=== PATIENT | female | born 1935 | race Caucasian/White ===

== ENCOUNTER 2016-12-06 10:06 | Emergency (ER) | payer MEDICARE ==
--- NOTE | 2016-12-06 10:20 | ER Document Report ---
ED Medical Screen (RME) - General Stated Complaint: CHEST PAIN Notes: chest pain with sudden onset last evening watching tv. right anterior chest pain with radiation into her right arm with associated SOB. patient states that her pain is less then before, took APA this AM stress test over a year ago denies coronary cath has IVC, h/o DVT and PE I have greeted and performed a rapid initial assessment of this patient. A comprehensive ED assessment and evaluation of the patient, analysis of test results and completion of the medical decision making process will be conducted by additional ED providers. TRAVEL OUTSIDE OF THE [place] IN LAST 30 DAYS: No - Related Data Allergies/Adverse Reactions: No Known Allergies Allergy (Verified 12/06/16 10:12) Past Medical History - Past Medical History Cardiac Medical History: Reports: Hx DVT, Hx Hypercholesterolemia, Hx Hypertension, Hx Pulmonary Embolism Denies: Hx Heart Attack, Hx Heart Murmur Pulmonary Medical History: Denies: Hx Asthma, Hx Tuberculosis Neurological Medical History: Denies: Hx Cerebrovascular Accident, Hx Seizures GI Medical History: Reports: Hx Gastroesophageal Reflux Disease. Denies: Hx Hepatitis, Hx Hiatal Hernia, Hx Ulcer Musculoskeltal Medical History: Psychiatric Medical History: Reports: Hx Depression Infectious Medical History: Denies: Hx Hepatitis Past Surgical History: Reports: Hx Hysterectomy, Hx Vascular Surgery - IVC filter. Denies: Hx Mastectomy, Hx Open Heart Surgery, Hx Pacemaker - Immunizations Hx Diphtheria, Pertussis, Tetanus Vaccination: Yes
[2016-12-06] MEDS ORDERED: ASPIRIN 81 MG TABLET, CHEWABLE PO ONE (10:25)
--- NOTE | 2016-12-06 10:59 | ER Document Report ---
ED General - General Chief Complaint: Chest Pain > 30 Stated Complaint: CHEST PAIN Time seen by provider: 10:54 Mode of Arrival: Ambulatory Information source: Patient, Relative Notes: 81-year-old female who is been complaining to caregiver and daughter of vague right parasternal chest pain radiating into the right shoulder and right upper back beginning last night. Family reports patient has some memory problems and the patient has given varying histories about how much pain she's been having since last night. At the moment she is stating that the pain is not present at rest but she feels some discomfort in the right scapular region with movement of the shoulder or deep breathing. Family contacted patient's primary care physician Dr. Baptiste and because of the report from the patient of feeling some shortness of breath she was referred to the emergency department. The patient denies diaphoresis nausea or vomiting. Family reports her mental status does not seem different than her baseline. He reports she's had 3 falls going up 1 step at home within the past 3 weeks. Reports she's not had a loss of consciousness with any of the falls and they did not identify any injury after any of the falls. They report she had a stress test that looked okay many years ago but no [place] catheterization or other cardiac history. Reports she does have an IVC filter placed in 1989 for pulmonary embolism. She was on Coumadin for many years but was stopped about 3 years ago for reasons the family does not recall. Reports she does not seem to have any pain numbness weakness or swelling to any extremity. Physical Exam: General: Alert, appears well. HEENT: Normocephalic. Atraumatic. PERRLA. Extraocular movements intact. Oropharynx clear. Extremities membranes moist Neck: Supple. Non-tender. Range of motion without discomfort no bony deformities palpated Respiratory: No respiratory distress. Clear and equal breath sounds bilaterally. Mildly tender to palpation in the right parasternal region no lesions are noted no crepitance present Cardiovascular: Regular rate and rhythm. PMI not displaced Abdominal: Normal Inspection. Soft, non-tender. No distension. Normal Bowel Sounds. No Guarding rebound rigidity. No Valentin sign Back: Minimal discomfort to palpation along the right upper scapula. No bony deformity or ecchymosis is present back is otherwise nontender to palpation No deformity or step off. Extremities: Moves all four extremities. Upper extremities: Normal inspection. Non-tender. Normal color. Normal ROM. Normal temperature. Range of motion testing the right upper extremity produces no discomfort. She does have mild tenderness palpation along the trapezius on the right Lower extremities: Normal inspection. Non-tender. No edema. Normal color. Normal ROM. Normal temperature. Neurological: Speech clear. Dope Pourer strength 5 out of 5 equal both upper extremities motor function 5 out of 5 equal both lower extremities. Patient is oriented to person and place and seems confused with answering detailed questions Psychological: Normal affect. Normal Mood. Skin: Warm. Dry. Normal color. TRAVEL OUTSIDE OF THE [place] IN LAST 30 DAYS: No - Related Data Allergies/Adverse Reactions: No Known Allergies Allergy (Verified 12/06/16 10:12) Past Medical History - Social History Smoking Status: Never Smoker Family History: DM Patient has suicidal ideation: No Patient has homicidal ideation: No - Past Medical History Cardiac Medical History: Reports: Hx DVT, Hx Hypercholesterolemia, Hx Hypertension, Hx Pulmonary Embolism Denies: Hx Heart Attack, Hx Heart Murmur Pulmonary Medical History: Denies: Hx Asthma, Hx Tuberculosis Neurological Medical History: Denies: Hx Cerebrovascular Accident, Hx Seizures Renal/ Medical History: Denies: Hx Peritoneal Dialysis GI Medical History: Reports: Hx Gastroesophageal Reflux Disease. Denies: Hx Hepatitis, Hx Hiatal Hernia, Hx Ulcer Musculoskeltal Medical History: Psychiatric Medical History: Reports: Hx Depression Infectious Medical History: Denies: Hx Hepatitis Past Surgical History: Reports: Hx Hysterectomy, Hx Vascular Surgery - IVC filter. Denies: Hx Mastectomy, Hx Open Heart Surgery, Hx Pacemaker - Immunizations Hx Diphtheria, Pertussis, Tetanus Vaccination: Yes Hx Pneumococcal Vaccination: 10/27/07 Review of Systems - Review of Systems Constitutional: denies: Chills, Fever EENT: denies: Ear pain, Throat pain Cardiovascular: See HPI. denies: Syncope Respiratory: Short of breath. denies: Cough Gastrointestinal: denies: Abdominal pain, Diarrhea, Nausea, Vomiting Genitourinary: denies: Burning, Dysuria Female Genitourinary: denies: Musculoskeletal: See HPI Hematologic/Lymphatic: denies: Swollen glands Neurological/Psychological: denies: Weakness, Numbness Course - Re-evaluation Re-evalutation: 12/06/16 12:15 Patient's exam is most consistent with musculoskeletal pain localizing to the right shoulder and right trapezius region and she has had multiple recent falls that might explain. Her bilirubin is minimally elevated but she has no right upper quadrant pain on deep palpation to suggest gallbladder disease. I discussed this with the patient's daughter and they're comfortable with stopping workup at this point. I discussed further to do definitive etiology for her symptoms has not been found but given her benign exam now I think more aggressive workup may be counterproductive. Rest and to follow her physician Dr. Baptiste next week for recheck and they're in agreement - Laboratory Result Diagrams: 12/06/16 10:52 12/06/16 10:52 Laboratory results interpreted by me: 12/06/16 12/06/16 10:52 10:52 Total Bilirubin 1.8 H Alkaline Phosphatase 133 H NT-Pro-B Natriuret Pep 780 H - Diagnostic Test Radiology reviewed: Image reviewed, Reports reviewed - EKG Interpretation by Me Additional EKG results interpreted by me: 12/06/16 12:15 EKG reviewed by myself shows sinus rhythm at 53 no acute changes sitting unchanged from prior EKG Discharge - Discharge Clinical Impression: Chest pain Qualifiers: Chest pain type: unspecified Qualified Code(s): R07.9 - Chest pain, unspecified Right shoulder pain Qualifiers: Chronicity: acute Qualified Code(s): M25.511 - Pain in right shoulder Condition: Stable Disposition: HOME, SELF-CARE Additional Instructions: Chest Wall Pain Your chest pain has been diagnosed as coming from the chest wall. This is often caused by straining the muscles or joints in the chest during physical activity, direct trauma, coughing, or vigorous vomiting. Persons with arthritis are especially prone to this type of pain, due to inflammation of the cartilage joints near the breast bone. Occasionally, no cause can be found. Rest from strenuous physical activity. This kind of chest pain is usually made worse by movement of the chest. Depending on the symptoms, we may prescribe medicine for pain, muscle relaxation, and antiinflammatory effects. If the pain is new, and seems to be due to muscle strain, cold packs can help. Otherwise, apply gentle warmth to the painful area for 15 minutes every hour or two. You should contact the doctor immediately if things change. Further evaluation is needed if you develop a fever or cough, if the nature of the pain changes, or if you become short of breath. Referrals: BRITTANI BAPTISTE, [NO LOCAL MD] - Follow up in 1 week
[2016-12-06 11:02] LABS: ABSOLUTE BASOPHILS # (AUTO) 0.1 10^3/uL (0.0-0.2); ABSOLUTE EOSINOPHILS # (AUTO) 0.3 10^3/uL (0.0-0.6); ABSOLUTE LYMPHOCYTES (AUTO) 1.3 10^3/uL (0.5-4.7); ABSOLUTE MONOCYTES (AUTO) 0.5 10^3/uL (0.1-1.4); ABSOLUTE NEUT (AUTO) 4.1 10^3/uL (1.7-8.2); BASOPHILS % (AUTO) 1.2 % (0-2); HEMATOCRIT 39.3 % (36.0-47.0); HEMOGLOBIN 13.1 g/dL (12.0-15.5); LYMPHOCYTES % (AUTO) 20.8 % (13-45); MEAN CORPUSCULAR HEMOGLOBIN 30.2 pg (27.0-33.4); MEAN CORPUSCULAR HGB CONC 33.4 g/dL (32.0-36.0); MEAN CORPUSCULAR VOLUME 90 fl (80-97); MONOCYTES % (AUTO) 8.1 % (3-13); RED BLOOD COUNT 4.34 10^6/uL (3.72-5.28); RED CELL DISTRIBUTION WIDTH 13.4 % (11.5-14.0); SEGMENTED NEUTROPHILS % (AUTO) 65.9 % (42-78); WHITE BLOOD COUNT 6.3 10^3/uL (4.0-10.5)
[2016-12-06 11:11] LABS: PROTHROMBIN TIME 12.7 SEC (11.4-15.4)
[2016-12-06 11:12] LABS: PARTIAL THROMBOPLASTIN TIME 27.3 SEC (23.5-35.8)
[2016-12-06 11:15] LABS: ALANINE AMINOTRANSFERASE 22 U/L (9-52); ALBUMIN 3.8 g/dL (3.5-5.0); ALKALINE PHOSPHATASE 133 U/L (38-126); ANION GAP 9 (5-19); ASPARTATE AMINO TRANSFERASE 32 U/L (14-36); BILIRUBIN,TOTAL 1.8 mg/dL (0.2-1.3); BLOOD UREA NITROGEN 12 mg/dL (7-20); CALCIUM 9.1 mg/dL (8.4-10.2); CARBON DIOXIDE 28 mmol/L (22-30); CHLORIDE 105 mmol/L (98-107); CREATINE KINASE 74 U/L (30-135); GLUCOSE 83 mg/dL (75-110); LIPASE 149.5 U/L (23-300); MAGNESIUM 1.8 mg/dL (1.6-2.3); SODIUM 141.9 mmol/L (137-145); TOTAL PROTEIN 7.6 g/dL (6.3-8.2)
[2016-12-06 11:28] LABS: CREATINE KINASE MB 0.65 ng/mL (<4.55); TROPONIN I < 0.012 ng/mL
[2016-12-06 12:36] VITALS: BP 178/78
--- NOTE | 2016-12-06 13:13 | EKG REPORT ---
SEVERITY:- ABNORMAL ECG - SINUS RHYTHM NONSPECIFIC ANTEROSEPTAL ST-T CHANGES : Confirmed by: Skyler Dexter MD 06-Dec-2016 13:12:29
== END 2016-12-06 12:41 | disposition home or self-care (01) ==
LOC: ER 10:06
DX: R07.9 Chest pain, unspecified (principal); M25.511 Pain in right shoulder; R41.3 Other amnesia; R06.02 Shortness of breath; I10 Essential (primary) hypertension; Z91.81 History of falling; Z86.711 Personal history of pulmonary embolism; Z86.718 Personal history of other venous thrombosis and embolism
CPT/HCPCS: 93005; 99285; 36415; 82553; 82550; 83690; 83735; 85025; 85610; 85730; 80053; 84484; 83880; 71010; 93010; A9270

== ENCOUNTER 2018-01-03 15:36 | Inpatient (IN) | payer MEDICARE ==
--- NOTE | 2018-01-03 16:37 | ER Document Report ---
ED General - General Chief Complaint: Syncope Stated Complaint: POSSIBLE SYNCOPE Time Seen by Provider: 01/03/18 15:59 Notes: This is a pleasant 82-year-old lady with Alzheimer's who lives at home with home care who comes in with syncope 2. She was being walked by her program director air talent out to the mailbox loss consciousness and postural tone and was helped to the ground. She woke up with no confusion or seizure-like activity. She was examined by EMS and family elected not to bring her in. About half an hour later she again got very dizzy turned pale and lost consciousness but did not have trauma. When she woke up from this episode she vomited. Patient is quite demented and is having trouble getting a history but she nods yes when asked if she has had chest pain. TRAVEL OUTSIDE OF THE [place] IN LAST 30 DAYS: No - Related Data Allergies/Adverse Reactions: No Known Allergies Allergy (Verified 12/06/16 10:12) Past Medical History - Social History Smoking Status: Never Smoker Chew tobacco use (# tins/day): No Frequency of alcohol use: None Drug Abuse: None Family History: DM Patient has suicidal ideation: No Patient has homicidal ideation: No - Past Medical History Cardiac Medical History: Reports: Hx DVT, Hx Hypercholesterolemia, Hx Hypertension, Hx Pulmonary Embolism Denies: Hx Heart Attack, Hx Heart Murmur Pulmonary Medical History: Denies: Hx Asthma, Hx Tuberculosis Neurological Medical History: Denies: Hx Cerebrovascular Accident, Hx Seizures Renal/ Medical History: Denies: Hx Peritoneal Dialysis GI Medical History: Reports: Hx Gastroesophageal Reflux Disease. Denies: Hx Hepatitis, Hx Hiatal Hernia, Hx Ulcer Musculoskeltal Medical History: Psychiatric Medical History: Reports: Hx Depression Infectious Medical History: Denies: Hx Hepatitis Past Surgical History: Reports: Hx Hysterectomy, Hx Vascular Surgery - IVC filter. Denies: Hx Mastectomy, Hx Open Heart Surgery, Hx Pacemaker - Immunizations Hx Diphtheria, Pertussis, Tetanus Vaccination: Yes Hx Pneumococcal Vaccination: 10/27/07 Review of Systems - Review of Systems Notes: Not able to obtain secondary to dementia PHYSICAL EXAMINATION General: No acute distress, well-nourished Head: Atraumatic, normocephalic ENT: Mouth normal, oropharynx moist, no exudates or tonsillar enlargement Eyes: Conjunctiva normal, pupils equal, lids normal Neck: No JVD, supple, no guarding CVS: Normal rate, regular rhythm, no murmurs Resp: No resp distress, equal and normal breath sounds bilaterally GI: Nondistended, soft, no tenderness to palpation, no rebound or guarding Ext: No deformities, no edema, normal range of motion in upper and lower ext Back: No CVA or midline TTP Skin: No rash, warm Lymphatic: No lymphadeopathy noted Neuro: Awake, alert. Face symmetric. G GCS 15 although memory is impaired. -: Yes ROS unobtainable due to patient's medical condition Physical Exam - Vital signs Vitals: Resp 19 01/03/18 15:44 Course - Re-evaluation Re-evalutation: This is an 82-year-old woman with no prior cardiac history presenting with 2 episodes of unprovoked syncope one followed by vomiting. Concern for bradycardia or tachyarrhythmia. Her exam is normal and I cannot get much of a history secondary to her dementia. I will rule out electrolyte abnormalities and acute kidney injury from dehydration. Her ECG has an irregular rhythm which , despite some artifact looks to be sinus with some pauses versus premature contractions. This will be repeated. 01/03/18 19:13 Labs normal. Stable in the ED. Consult to Dr. Rock who agrees with admission here for observation. He looked EKG with me and agrees on its interpretation. Spoke with hospitalist for admission. - Vital Signs Vital signs: Temp Pulse Resp BP Pulse Ox 13 127/69 H 96 01/03/18 18:01 01/03/18 18:01 01/03/18 18:01 - Laboratory Result Diagrams: 01/03/18 17:45 01/03/18 17:45 Laboratory results interpreted by me: 01/03/18 01/03/18 17:45 17:45 WBC 11.6 H RDW 14.4 H Seg Neutrophils % 83.4 H Lymphocytes % 9.1 L Absolute Neutrophils 9.6 H Est GFR ( Amer) 59 L Est GFR (Non-Af Amer) 48 L Glucose 112 H - Diagnostic Test Radiology reviewed: Image reviewed, Reports reviewed - EKG Interpretation by Me EKG shows normal: Sinus rhythm Rate: Normal Rhythm: NSR, APC's When compared to previous EKG there are: Changes noted Discharge - Discharge Clinical Impression: Syncope and collapse Condition: Fair Disposition: ADMITTED OBSERVATION Admitting Provider: Hospitalist Unit Admitted: Telemetry Referrals: BRITTANI BAPTISTE DO [Primary Care Provider] - Follow up as needed
--- NOTE | 2018-01-03 17:55 | RADIOLOGY REPORT (SQ) ---
EXAM DESCRIPTION: CHEST SINGLE VIEW COMPLETED DATE/TIME: 01/03/2018 5:45 pm REASON FOR STUDY: syncope COMPARISON: 10/02/2010 EXAM PARAMETERS: NUMBER OF VIEWS: One view. TECHNIQUE: Single frontal radiographic view of the chest acquired. RADIATION DOSE: NA LIMITATIONS: None. FINDINGS: LUNGS AND PLEURA: No opacities, masses or pneumothorax. No pleural effusion. MEDIASTINUM AND HILAR STRUCTURES: No masses. Contour normal. HEART AND VASCULAR STRUCTURES: Heart stable in size. Normal vasculature. BONES: No acute findings. HARDWARE: None in the chest. OTHER: No other significant finding. IMPRESSION: NO ACUTE RADIOGRAPHIC FINDING IN THE CHEST. NO SIGNIFICANT CHANGE FROM PRIOR STUDY. TECHNICAL DOCUMENTATION: JOB ID: [id number] [employer]- All Rights Reserved Reading location - IP/workstation name: [email or web address]
[2018-01-03 18:12] LABS: ABSOLUTE BASOPHILS # (AUTO) 0.1 10^3/uL (0.0-0.2); ABSOLUTE EOSINOPHILS # (AUTO) 0.1 10^3/uL (0.0-0.6); ABSOLUTE LYMPHOCYTES (AUTO) 1.1 10^3/uL (0.5-4.7); ABSOLUTE MONOCYTES (AUTO) 0.7 10^3/uL (0.1-1.4); ABSOLUTE NEUT (AUTO) 9.6 10^3/uL (1.7-8.2); BASOPHILS % (AUTO) 0.9 % (0-2); EOSINOPHILS % (AUTO) 0.7 % (0-6); HEMATOCRIT 38.9 % (36.0-47.0); LYMPHOCYTES % (AUTO) 9.1 % (13-45); MEAN CORPUSCULAR HEMOGLOBIN 30.6 pg (27.0-33.4); MEAN CORPUSCULAR HGB CONC 33.5 g/dL (32.0-36.0); MEAN CORPUSCULAR VOLUME 92 fl (80-97); MONOCYTES % (AUTO) 5.9 % (3-13); PLATELET COUNT 246 10^3/uL (150-450); RED BLOOD COUNT 4.26 10^6/uL (3.72-5.28); RED CELL DISTRIBUTION WIDTH 14.4 % (11.5-14.0); SEGMENTED NEUTROPHILS % (AUTO) 83.4 % (42-78); TOTAL CELLS COUNTED % (AUTO) 100 %; WHITE BLOOD COUNT 11.6 10^3/uL (4.0-10.5)
[2018-01-03 18:31] LABS: ANION GAP 11 (5-19); BLOOD UREA NITROGEN 11 mg/dL (7-20); CALCIUM 9.8 mg/dL (8.4-10.2); CARBON DIOXIDE 26 mmol/L (22-30); CHLORIDE 106 mmol/L (98-107); GLUCOSE 112 mg/dL (75-110); POTASSIUM 3.8 mmol/L (3.6-5.0); SODIUM 143.4 mmol/L (137-145)
[2018-01-03] MEDS ORDERED: NORMAL SALINE 500 ML IV ONE (19:18)
[2018-01-03] MEDS ORDERED: NORMAL SALINE 1000 ML 1,000 ML IV PRN (19:27)
[2018-01-03] MEDS ORDERED: PROMETHAZINE HCL INJ 25 MG/1 ML VIAL IV PRN (19:27)
--- NOTE | 2018-01-03 19:47 | PDOC CONSULTATION ---
Consultation Consult Date: 01/03/18 Attending physician:: JAMISON SHOEMAKER Consult reason:: Syncope History of Present Illness Admission Date/PCP: 01/03/18 19:19 BRITTANI BAPTISTE DO Patient complains of: Syncope History of Present Illness: PENNY COELHO is a pleasant 82-year-old lady with Alzheimer's who lives at home with home care who comes in with syncope 2. She was being walked by her supervisor wall mirror department out to the mailbox loss consciousness and postural tone and was helped to the ground. She woke up with no confusion or seizure-like activity. She was examined by EMS and family elected not to bring her in. About half an hour later she again got very dizzy turned pale and lost consciousness but did not have trauma. When she woke up from this episode she vomited. Patient is quite demented and is having trouble getting a history but she nods yes when asked if she has had chest pain. Patient's family, multiple daughters at bedside. They claim that patient was noted to be diaphoretic, pale, due to low blood pressure for heart. It also seems that patient was incontinent of urine. Patient has no prior history of syncope or near syncope. Recently for last several days patient p.o. intake has been poor. Past Medical History Cardiac Medical History: Reports: DVT, Hyperlipidema, Hypertension, Pulmonary Embolism Denies: Myocardial Infarction, Heart Murmur Pulmonary Medical History: Denies: Asthma, Tuberculosis Neurological Medical History: Denies: Seizures GI Medical History: Reports: Gastroesophageal Reflux Disease Denies: Hepatitis, Hiatal Hernia Musculoskeltal Medical History: Psychiatric Medical History: Reports: Depression Hematology: Denies: Anemia, Hemophilia, Sickle Cell Disease Past Surgical History Past Surgical History: Reports: Hysterectomy, Vascular Surgery - IVC filter Denies: Amputation, Mastectomy, Pacemaker Social History Information Source: Relative Smoking Status: Never Smoker Frequency of Alcohol Use: None Hx Recreational Drug Use: No - Advance Directive Resuscitation Status: Full Code Surrogate healthcare decision maker:: Patient's daughter at the surrogate decision-maker Family History Family History: DM Parental Family History Reviewed: Yes Children Family History Reviewed: Yes Sibling(s) Family History Reviewed.: Yes Medication/Allergy Home Medications: Calcium Carbonate/Vitamin D3 [Os-Nathan 500-Vit D3 200 Caplet] 1 each PO BID Atorvastatin Calcium [Lipitor 10 mg Tablet] 10 mg PO DAILY 11/06/13 Diltiazem HCl [Diltiazem 24Hr Cd] 240 mg PO DAILY 11/06/13 Escitalopram Oxalate [Lexapro 10 mg Tablet] 10 mg PO DAILY 11/06/13 Aspirin [Aspirin 81 mg Chewable Tablet] 81 mg PO DAILY #30 tab.chew 11/07/13 Lansoprazole [Prevacid 30 mg Odt Tablet] 30 mg PO BIDACBS #60 tab.rap.dr Warfarin Sodium [Coumadin 3 mg Tablet] 3 mg PO QHS #30 tablet 11/07/13 Allergies/Adverse Reactions: No Known Allergies Allergy (Verified 12/06/16 10:12) Review of Systems ROS unobtainable: Due to mental status - Patient has advanced dementia Physical Exam Vital Signs: Temp Pulse Resp BP Pulse Ox 13 127/69 H 96 01/03/18 18:01 01/03/18 18:01 01/03/18 18:01 Exam: GENERAL: well-nourished and in no acute distress. Patient is alert but not oriented to place time or person. HEAD: Atraumatic, normocephalic. EYES: Pupils equal round and reactive to light, extraocular movements intact, sclera anicteric, conjunctiva are normal. ENT: TMs normal, nares patent, oropharynx clear without exudates. Moist mucous membranes. No oral ulcerations or bleeding gums noted NECK: supple without lymphadenopathy or JVD. Trachea is central. No cervical or axillary lymphadenopathy noted. Carotids are 2+ LUNGS: Breath sounds bibasilar fine crackles at bases. No significant dullness noted. CHEST: Palpation of chest wall shows no significant chest wall tenderness. HEART: [place] DIRECTOR DANCE, No PSH, 2/6 AUTUMN aortic area, 1/6 ortega systolic murmur mitral area, rubs or gallops. ABDOMEN: Soft, no significant tenderness appreciated, normoactive bowel sounds. No guarding, no rebound. No rigidity noted . No masses appreciated. EXTREMITIES: Pedal pulses are 1-2+, no calf tenderness noted, Trace + pedal edema noted. No clubbing or cyanosis. NEUROLOGICAL: Patient is alert but is not able to participate in neurological exam because of patient's current mental status PSYCH: Patient cannot participate in a neurologic and psych exam because of the patient's current mental status SKIN: No significant ecchymosis, rash, ulcerations or signs of pruritus noted. MUSCULOSKELETAL EXAM: No significant joint swelling noted. Results EKG Comments: Shows sinus rhythm, occasional APCs, minor nonspecific ST segment changes noted. Impressions: Chest X-Ray 01/03/18 17:09 IMPRESSION: NO ACUTE RADIOGRAPHIC FINDING IN THE CHEST. NO SIGNIFICANT CHANGE FROM PRIOR STUDY. Assessment & Plan - Diagnosis (1) Syncope and collapse Is this a current diagnosis for this admission?: Yes (2) Hypertension Qualifiers: Hypertension type: essential hypertension Qualified Code(s): I10 - Essential (primary) hypertension Is this a current diagnosis for this admission?: Yes (3) Dementia Qualifiers: Dementia type: unspecified type Dementia behavioral disturbance: without behavioral disturbance Qualified Code(s): F03.90 - Unspecified dementia without behavioral disturbance Is this a current diagnosis for this admission?: Yes - Notes Notes: Syncope: By history it seems patient may have had vasovagal episode. Other differential diagnosis includes orthostatic hypotension, cardiac dysrhythmia such as sick sinus syndrome, cardiac tachyarrhythmia such as paroxysmal atrial fibrillation etc. At this point agree with observing patient on telemetry floor , would recommend IV fluids and checking orthostatic hypotension. Hypertension: Blood pressure noted to be somewhat low. Will stop losartan or decrease the dose. Will tolerate a high systolic blood pressure up to 150 mmHg in this elderly lady with dementia. Dementia: Currently is stable. Continue Namenda. We will repeat EKG in the morning. Will schedule patient for a 2D echocardiogram. - Time Time Spent: 30 to 50 Minutes - CODE STATUS was discussed, patient remains full code. Surrogate decision-maker unchanged. Multiple medical problems were addressed. More than 50% of the time spent coordinating care, discussing management plans with involved caregivers. Management plans discussed with involved personnels. Medical decision making was of moderate to high complexity , patient's has multiple comorbidities. Medications reviewed and adjusted accordingly: Yes
[2018-01-03 19:49] LABS: INTERNATIONAL RATION (INR) 0.97; PROTHROMBIN TIME 13.6 SEC (11.4-15.4)
--- NOTE | 2018-01-03 22:18 | RADIOLOGY REPORT (SQ) ---
EXAM DESCRIPTION: CT HEAD WITHOUT COMPLETED DATE/TIME: 01/03/2018 10:07 pm REASON FOR STUDY: syncope R55 SYNCOPE AND COLLAPSE COMPARISON: None. TECHNIQUE: Axial images acquired through the brain without intravenous contrast. Images reviewed wi th bone, brain and subdural windows. Images stored on PACS. All CT scanners at this facility use dose modulation, iterative reconstruction, and/or weight based d osing when appropriate to reduce radiation dose to as low as reasonably achievable (ALARA). [facility]: Dose Right [facility]: CareDose [facility]: Dose Right [facility]: Teradose 4D [facility]: Smart [employer] ([place]) RADIATION DOSE: CT Rad equipment meets quality standard of care and radiation dose reduction techniq ues were employed. CTDIvol: 64.6 mGy. DLP: 2430 mGy-cm.mGy. LIMITATIONS: None. FINDINGS: VENTRICLES: Prominent. CEREBRUM: No masses. No hemorrhage. No midline shift. Areas of low density in the white matter mos t likely due to chronic micro-vascular ischemic change. No evidence for acute infarction. CEREBELLUM: No masses. No hemorrhage. No alteration of density. No evidence for acute infarction. EXTRAAXIAL SPACES: Age-related involutional change. No fluid collections. No masses. ORBITS AND GLOBE: No intra- or extraconal masses. Normal contour of globe without masses. CALVARIUM: No fracture. PARANASAL SINUSES: No fluid or mucosal thickening. SOFT TISSUES: No mass or hematoma. Incidental note is made of gas within the central venous vasculat ure area, likely on the basis of IV placement. OTHER: No other significant finding. IMPRESSION: CHRONIC CHANGES OF ATROPHY AND MICROVASCULAR ISCHEMIA. NO ACUTE PROCESS. EVIDENCE OF ACUTE STROKE: NO. TECHNICAL DOCUMENTATION: JOB ID: [id number] Quality ID # [id number]: Final reports with documentation of one or more dose reduction techniques (e.g., Au tomated exposure control, adjustment of the mA and/or kV according to patient size, use of iterative reconstruction technique) 2010 [employer]- All Rights Reserved Reading location - IP/workstation name: [email or web address]
--- NOTE | 2018-01-03 23:45 | PDOC H&P ---
History of Present Illness Admission Date/PCP: 01/03/18 19:19 BRITTANI BAPTISTE DO Patient complains of: Syncopal episodes 2 today per her family. History of Present Illness: PENNY COELHO is a pleasant 82-year-old lady with history of dementia of the Alzheimer's type, hypertension, PE (off Coumadin) was admitted with above- mentioned complaints. Given the patient's dementia, the history was obtained from her 3 daughters at bedside. According to her family, the patient always complains of not feeling well and likes to stay in bed. But today, she was encouraged by one of her daughters to get up and take a walk. Around 1:30 - 2:00 PM, the patient was walking with her caregiver to the mailbox when she said that she was feeling very weak. Her caregiver lowered her to the ground and the patient lost consciousness for unknown duration. And when she woke up she vomited once. Her caregiver called 1 of her daughters who told her to call 911. Upon arrival, EMS found the patient at baseline with adequate blood sugar and her blood pressure was 118/ 68 which according to her daughter is low for the patient. At that point, they decided not to bring her to the hospital. The patient walked back to the house and had a cracker. And when she stood up, she again lost consciousness so she was lowered to the ground and this time she actually vomited and had stool incontinence. The stool and the vomitus were both nonbloody. At that point, EMS was called again and she was brought to the hospital. There was no report of any seizure activities, eyes rolling in the back of her head or any frothing at the mouth or any focal weakness or numbness. She did not complain of any chest pain and she was not short of breath or having any fever, chills or cough. There was also no mentioning of any dysuria or foul-smelling urine. However, she complained of some epigastric pain, no constipation. And according to her family, the patient's appetite has been poor lately. Of note, the patient had shingles on her lower back 2 weeks ago for which she was treated. She was also given a "pill for agitation" last week but not this time. In the ED, her temperature was not recorded, heart rate 59, respiratory rate 16 , blood pressure 110/68 with oxygen saturation of 97% on room air. Her WBC was 11.6 and her troponin was negative. A chest x-ray was done which was unremarkable. CAT scan head and UA are still pending. She is currently back to baseline. Past Medical History Medical History: Other - According to the patient's family and based on previous records. Cardiac Medical History: Reports: DVT, Hyperlipidema, Hypertension, Pulmonary Embolism - off coumadin Denies: Myocardial Infarction, Heart Murmur Pulmonary Medical History: Denies: Asthma, Tuberculosis Neurological Medical History: Denies: Seizures GI Medical History: Reports: Gastroesophageal Reflux Disease Denies: Hepatitis, Hiatal Hernia Musculoskeltal Medical History: Psychiatric Medical History: Reports: Depression Hematology: Denies: Anemia, Hemophilia, Sickle Cell Disease Past Surgical History Past Surgical History: Reports: Cholecystectomy, Hysterectomy, Vascular Surgery - IVC filter, Other - parathyroid resection. Denies: Amputation, Mastectomy, Pacemaker Social History Smoking Status: Never Smoker Frequency of Alcohol Use: None Hx Recreational Drug Use: No - Advance Directive Resuscitation Status: Do Not Resuscitate Family History Family History: DM Parental Family History Reviewed: Yes - No cardiac disease in the family. Children Family History Reviewed: No Sibling(s) Family History Reviewed.: Yes Medication/Allergy Home Medications: Calcium Carbonate/Vitamin D3 [Os-Nathan 500-Vit D3 200 Caplet] 1 each PO BID Atorvastatin Calcium [Lipitor 10 mg Tablet] 10 mg PO DAILY 11/06/13 Diltiazem HCl [Diltiazem 24Hr Cd] 240 mg PO DAILY 11/06/13 Escitalopram Oxalate [Lexapro 10 mg Tablet] 10 mg PO DAILY 11/06/13 Aspirin [Aspirin 81 mg Chewable Tablet] 81 mg PO DAILY #30 tab.chew 11/07/13 Lansoprazole [Prevacid 30 mg Odt Tablet] 30 mg PO BIDACBS #60 tab.rap.dr Warfarin Sodium [Coumadin 3 mg Tablet] 3 mg PO QHS #30 tablet 11/07/13 Allergies/Adverse Reactions: No Known Allergies Allergy (Verified 12/06/16 10:12) Review of Systems ROS unobtainable: Other - Unable to obtain an accurate review of system given the patient's dementia. Physical Exam Vital Signs: Temp Pulse Resp BP Pulse Ox 18 133/75 H 95 01/03/18 21:01 01/03/18 21:01 01/03/18 21:01 General appearance: PRESENT: no acute distress, well-developed, well-nourished Head exam: PRESENT: atraumatic, normocephalic Eye exam: PRESENT: conjunctiva pink, PERRLA. ABSENT: scleral icterus Mouth exam: PRESENT: moist, neck supple Neck exam: PRESENT: full ROM. ABSENT: JVD Respiratory exam: PRESENT: clear to auscultation lisette. ABSENT: rales, rhonchi, wheezes Cardiovascular exam: PRESENT: RRR, +S1, +S2 Pulses: PRESENT: normal dorsalis pedis pul GI/Abdominal exam: PRESENT: normal bowel sounds, soft. ABSENT: distended, rigid , tenderness Rectal exam: PRESENT: deferred Extremities exam: PRESENT: full ROM. ABSENT: pedal edema Neurological exam: PRESENT: alert, awake Skin exam: PRESENT: dry, warm. ABSENT: erythema, rash Results Laboratory Results: CBC: WBC 11.6, hemoglobin 13.0, hematocrit 38.9, MCV 92, RDW 14.4, platelets 246. PT/INR 13.6/0.97. BMP: Sodium 143.4, potassium 3.8, chloride 106, bicarb 26, anion gap 11, BUN 11 , creatinine 1.08, glucose 112, calcium 9.8. Troponin 1 negative. UA pending. EKG Comments: Lead EKG, sinus rhythm, ventricular rate 60, axis 0, QTC prolongation, APCs, no acute changes. Similar when compared to previous 12-lead EKG done on 12/07/2016. Impressions: Head CT 01/03/18 00:00 IMPRESSION: CHRONIC CHANGES OF ATROPHY AND MICROVASCULAR ISCHEMIA. NO ACUTE PROCESS. EVIDENCE OF ACUTE STROKE: NO. Chest X-Ray 01/03/18 17:09 IMPRESSION: NO ACUTE RADIOGRAPHIC FINDING IN THE CHEST. NO SIGNIFICANT CHANGE FROM PRIOR STUDY. Assessment & Plan - Diagnosis (1) Syncope and collapse Is this a current diagnosis for this admission?: Yes Plan: x2 episodes secondary to orthostasis most likely, less likely cardiac. Will start IV fluids and check orthostasis in a.m. We will continue to cycle cardiac enzymes and check an echocardiogram in a.m. We will also check carotid Dopplers and follow-up CAT scan of the head. Her family was advised to allow the patient to take her time when changing positions from lying to sitting to standing. Further management per cardiology consulted by the ED physician. Cardiology consult appreciated. (2) Essential hypertension Is this a current diagnosis for this admission?: Yes Plan: We will continue to monitor her blood pressure and adjust her BP medications as indicated once an accurate list is available. We will try not to control her blood pressure too tightly especially if she is has orthostasis. (3) Generalized weakness Is this a current diagnosis for this admission?: Yes Plan: We will liberate the patient's diet and check TSH, B12 and folate and UA. PT consulted. (4) Parathyroid abnormality Is this a current diagnosis for this admission?: No Plan: Post resection per family. - Time Time Spent: 50 to 70 Minutes - Inpatient Certification Based on my medical assessment, after consideration of the patient's comorbidities, presenting symptoms, or acuity I expect that the services needed warrant INPATIENT care.: Yes I certify that my determination is in accordance with my understanding of Medicare's requirements for reasonable and necessary INPATIENT services [42 CFR 412.3e].: Yes
[2018-01-04 06:44] LABS: HEMATOCRIT 36.5 % (36.0-47.0); HEMOGLOBIN 12.2 g/dL (12.0-15.5); MEAN CORPUSCULAR HEMOGLOBIN 30.7 pg (27.0-33.4); MEAN CORPUSCULAR HGB CONC 33.5 g/dL (32.0-36.0); MEAN CORPUSCULAR VOLUME 92 fl (80-97); PLATELET COUNT 192 10^3/uL (150-450); RED BLOOD COUNT 3.98 10^6/uL (3.72-5.28); RED CELL DISTRIBUTION WIDTH 14.4 % (11.5-14.0); WHITE BLOOD COUNT 7.4 10^3/uL (4.0-10.5)
[2018-01-04 07:08] LABS: ANION GAP 12 (5-19); BLOOD UREA NITROGEN 16 mg/dL (7-20); CALCIUM 9.2 mg/dL (8.4-10.2); CARBON DIOXIDE 25 mmol/L (22-30); CHLORIDE 104 mmol/L (98-107); GLUCOSE 105 mg/dL (75-110)
--- NOTE | 2018-01-04 10:48 | EKG REPORT ---
SEVERITY:- ABNORMAL ECG - SINUS RHYTHM NONSPECIFIC T ABNORMALITIES, ANT-LAT LEADS : Confirmed by: Stephanie Rock 04-Jan-2018 10:48:02
--- NOTE | 2018-01-04 10:49 | EKG REPORT ---
SEVERITY:- ABNORMAL ECG - SINUS RHYTHM WITH APC BORDERLINE PROLONGED QT INTERVAL : Confirmed by: Stephanie Rock 04-Jan-2018 10:48:51
--- NOTE | 2018-01-04 11:01 | RADIOLOGY REPORT (SQ) ---
EXAM DESCRIPTION: ACUTE ABDOMEN SERIES COMPLETED DATE/TIME: 01/04/2018 10:52 am REASON FOR STUDY: abdominal pain R55 SYNCOPE AND COLLAPSE COMPARISON: None. NUMBER OF VIEWS: Three views. TECHNIQUE: Frontal chest, supine abdomen and upright/decubitus abdomen radiographic images acquired. LIMITATIONS: None. FINDINGS: CHEST: Lungs clear of infiltrates. FREE AIR: None. No abnormal gas collections. BOWEL GAS PATTERN: Nonobstructive pattern. No dilated loops or air fluid levels. CALCIFICATIONS: No suspicious calcifications. HARDWARE: Inferior vena cava filter. Surgical clips. SOFT TISSUES: No gross mass or suggestion of organomegaly. BONES: No acute fracture. No worrisome bone lesions. OTHER: No other significant finding. IMPRESSION: NO RADIOGRAPHIC EVIDENCE FOR ACUTE ABDOMINAL DISEASE. TECHNICAL DOCUMENTATION: JOB ID: [id number] [employer]- All Rights Reserved Reading location - IP/workstation name: [email or web address]
[2018-01-04] MEDS: DOCUSATE SODIUM 100 MG CAPSULE PO PRN ×2 (11:05→17:22)
--- NOTE | 2018-01-04 11:15 | PDOC PROGRESS REPORT ---
Subjective Progress Note for:: 01/04/18 Subjective:: Patient is sleeping since receiving Phenergan for nausea. Daughters are at bedside, denying new issues no telemetry alarms, new overnight events ; an episode of nausea with vomiting 1. Patient is arousable oriented 1 at baseline. Home medications evaluated. Daughter states patient has excessive morning reluctance to arise from bed. Denies new medications. Orthostatic vital signs unable to be obtained secondary to sedation. Reason For Visit: SYNCOPE AND COLLAPSE Physical Exam Vital Signs: Temp Pulse Resp BP Pulse Ox 97.4 F 52 L 18 149/67 H 95 01/04/18 08:10 01/04/18 08:10 01/04/18 08:10 01/04/18 08:10 01/04/18 08:10 Intake & Output 01/02/18 01/03/18 01/04/18 11:59 11:59 12:59 Intake Total 1090 Output Total 400 Balance 690 Results Laboratory Results: 01/04/18 06:03 01/04/18 06:03 01/04/18 01/04/18 01/04/18 06:03 06:03 06:03 WBC 7.4 RBC 3.98 Hgb 12.2 Hct 36.5 MCV 92 MCH 30.7 MCHC 33.5 RDW 14.4 H Plt Count 192 Sodium 141.0 Potassium 4.0 Chloride 104 Carbon Dioxide 25 Anion Gap 12 BUN 16 Creatinine 1.15 Est GFR ( Amer) 55 L Est GFR (Non-Af Amer) 45 L Glucose 105 Calcium 9.2 Magnesium 1.6 01/04/18 01/04/18 00:03 06:03 Troponin I < 0.012 < 0.012 Impressions: Head CT 01/03/18 00:00 IMPRESSION: CHRONIC CHANGES OF ATROPHY AND MICROVASCULAR ISCHEMIA. NO ACUTE PROCESS. EVIDENCE OF ACUTE STROKE: NO. Chest X-Ray 01/03/18 17:09 IMPRESSION: NO ACUTE RADIOGRAPHIC FINDING IN THE CHEST. NO SIGNIFICANT CHANGE FROM PRIOR STUDY. Acute Abdomen Series 01/04/18 00:00 IMPRESSION: NO RADIOGRAPHIC EVIDENCE FOR ACUTE ABDOMINAL DISEASE. Assessment & Plan - Diagnosis (1) Bradycardia Is this a current diagnosis for this admission?: Yes Plan: Mild bradycardia 50, not on pharmacological nora blocking agents. Reevaluate with orthostatics (2) Dementia Qualifiers: Dementia type: unspecified type Dementia behavioral disturbance: without behavioral disturbance Qualified Code(s): F03.90 - Unspecified dementia without behavioral disturbance Is this a current diagnosis for this admission?: Yes Plan: Discontinue Namenda secondary to adverse reaction of fatigue, drowsiness and nausea (3) Essential hypertension Is this a current diagnosis for this admission?: Yes Plan: Hold losartan given possible orthostasis pending check of vitals. Possible hypoperfusion on change of position. (4) Generalized weakness Is this a current diagnosis for this admission?: Yes Plan: And debility complicated by advancing dementia. Supportive care (5) Syncope and collapse Is this a current diagnosis for this admission?: Yes Plan: Likely orthostatic, MARCEL stockings applied, possible bradycardia, continue follow -up telemetry and orthostatic vitals. - Time Time Spent with patient: 15-24 minutes
[2018-01-04] MEDS ORDERED: PROMETHAZINE HCL INJ 25 MG/1 ML VIAL IV PRN (11:51)
--- NOTE | 2018-01-04 15:05 | PDOC PROGRESS REPORT ---
Subjective Progress Note for:: 01/04/18 Subjective:: Patient seems to be doing better with gradual improvement. Patient has been noted to be intermittently dizzy. This is mainly when she is up and about. Pt is denying any chest arm or neck discomfort. Patient denying any PND, orthopnea. Patient denied any sustained palpitations, dizziness, syncope, near syncope. Patient denying any fever chills. Patient denying any other significant discomfort. Patient is maintaining sinus rhythm. Mild sinus bradycardia noted on telemetry with heart rate in the 50s. Review of systems: Rest review of systems negative. Medications: Medications have been reviewed. Reason For Visit: SYNCOPE AND COLLAPSE Physical Exam Vital Signs: Temp Pulse Resp BP Pulse Ox 98.6 F 66 18 142/73 H 98 01/04/18 12:47 01/04/18 14:00 01/04/18 12:47 01/04/18 12:47 01/04/18 12:47 Intake & Output 01/03/18 01/04/18 01/05/18 05:59 06:59 06:59 Intake Total Output Total Balance Exam: GENERAL: well-nourished and in no acute distress. Alert and oriented x2 HEAD: Atraumatic, normocephalic. EYES: Pupils equal round and reactive to light, extraocular movements intact, sclera anicteric, conjunctiva are normal. ENT: TMs normal, nares patent, oropharynx clear without exudates. Moist mucous membranes. No oral ulcerations or bleeding gums noted NECK: supple without lymphadenopathy. Trachea is central. No cervical or axillary lymphadenopathy noted. Carotids are 2+, JVD WNL LUNGS: Respiration seems nonlabored, no significant accessory muscle action noted. Breath sounds clear to auscultation bilaterally and equal noted. No wheezes rales or rhonchi noted. No significant dullness noted on percussion. CHEST: Palpation of the chest wall shows no significant chest wall tenderness. No other significant abnormalities noted. 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 ABDOMEN: Soft, no significant tenderness appreciated, normoactive bowel sounds. No guarding, no rebound. No rigidity noted . No masses appreciated. EXTREMITIES: Pedal pulses are 1-2+, no calf tenderness noted. No clubbing or cyanosis. Negative pedal edema noted NEUROLOGICAL: Focused neurological exam showed no significant neurologic deficit. Normal speech, no focal weakness appreciated. Some generalized weakness noted. PSYCH: Normal mood, normal affect. Judgment not checked. SKIN: No significant ecchymosis, skin is noted to be warm. MUSCULOSKELETAL EXAM: No significant acute joint swelling noted. Results Laboratory Results: 01/04/18 06:03 01/04/18 06:03 01/04/18 01/04/18 01/04/18 06:03 06:03 06:03 WBC 7.4 RBC 3.98 Hgb 12.2 Hct 36.5 MCV 92 MCH 30.7 MCHC 33.5 RDW 14.4 H Plt Count 192 Sodium 141.0 Potassium 4.0 Chloride 104 Carbon Dioxide 25 Anion Gap 12 BUN 16 Creatinine 1.15 Est GFR ( Amer) 55 L Est GFR (Non-Af Amer) 45 L Glucose 105 Calcium 9.2 Magnesium 1.6 01/04/18 01/04/18 01/04/18 00:03 06:03 11:50 Troponin I < 0.012 < 0.012 < 0.012 EKG Comments: Twelve-lead EKG shows sinus rhythm without any sustained tachycardia or bradycardia. Heart rate noted in the 50s at times. Impressions: Head CT 01/03/18 00:00 IMPRESSION: CHRONIC CHANGES OF ATROPHY AND MICROVASCULAR ISCHEMIA. NO ACUTE PROCESS. EVIDENCE OF ACUTE STROKE: NO. Chest X-Ray 01/03/18 17:09 IMPRESSION: NO ACUTE RADIOGRAPHIC FINDING IN THE CHEST. NO SIGNIFICANT CHANGE FROM PRIOR STUDY. Acute Abdomen Series 01/04/18 00:00 IMPRESSION: NO RADIOGRAPHIC EVIDENCE FOR ACUTE ABDOMINAL DISEASE. Assessment & Plan - Diagnosis (1) Syncope and collapse Is this a current diagnosis for this admission?: Yes (2) Hypertension Qualifiers: Hypertension type: essential hypertension Qualified Code(s): I10 - Essential (primary) hypertension Is this a current diagnosis for this admission?: Yes (3) Dementia Qualifiers: Dementia type: unspecified type Dementia behavioral disturbance: without behavioral disturbance Qualified Code(s): F03.90 - Unspecified dementia without behavioral disturbance Is this a current diagnosis for this admission?: Yes - Notes Notes: Syncope: Most likely felt to be neurocardiogenic and orthostatic. So far no significant bradycardia or tachyarrhythmias noted. Continue to monitor. Patient may benefit from physical therapy, support stockings etc. Orthostatic blood pressure were obtained and were noted to be relatively unremarkable. Hypertension: Agree with holding losartan at this point. Dementia: Currently stable. General debility: Patient will benefit from physical therapy. - Time Time with patient: 15-25 minutes - CODE STATUS : was discussed, patient remains DO NOT RESUSCITATE. Surrogate decision-maker unchanged. Multiple medical problems were addressed. More than 50% of the time spent coordinating care, discussing management plans with involved caregivers. Management plans discussed with involved personnels. Medical decision making was of moderate to high complexity, patient's has multiple comorbidities. Medications reviewed and adjusted accordingly: Yes
[2018-01-04] MEDS ORDERED: NORMAL SALINE 500 ML IV ONE (18:15)
[2018-01-04] MEDS: ACETAMINOPHEN 325 MG TABLET PO PRN (20:35)
[2018-01-05] MEDS: DOCUSATE SODIUM 100 MG CAPSULE PO PRN ×2 (09:38→17:05)
[2018-01-05] MEDS ORDERED: ASPIRIN 81 MG TABLET, CHEWABLE PO SCH (12:00)
--- NOTE | 2018-01-05 12:41 | RADIOLOGY REPORT (SQ) ---
EXAM DESCRIPTION: CAROTID DOPPLER COMPLETED DATE/TIME: 01/05/2018 11:36 am REASON FOR STUDY: acute neurologic syndrome R55 SYNCOPE AND COLLAPSE COMPARISON: None. TECHNIQUE: Grayscale ultrasound, Doppler velocity and spectra, and color Doppler images acquired of the extra-cranial carotid and vertebral arteries. Images stored on PACS. LIMITATIONS: None. FINDINGS: RIGHT CAROTID CCA Velocities: Within normal limits. ICA Velocities Peak systolic 0.81 m/s. End diastolic 0.16 m/s. Proximal ICA/CCA peak systolic ratio 1.3. Spectra normal. No significant plaque. LEFT CAROTID CCA Velocities: Within normal limits. ICA Velocities Peak systolic 0.83 m/s. End diastolic 0.20 m/s. Proximal ICA/CCA peak systolic ratio 1.7. Spectra normal. No significant plaque. VERTEBRAL ARTERIES: Antegrade flow. Normal waveforms. SUBCLAVIAN ARTERIES: No finding. OTHER: No other significant finding. IMPRESSION: NO HEMODYNAMICALLY SIGNIFICANT STENOSIS. COMMENT: Quality ID #[id number]: Velocity criteria are extrapolated from the diameter data as defined by t he Society of Radiologists in Ultrasound Consensus Conference. Radiology 2003: 229; 340-346. TECHNICAL DOCUMENTATION: JOB ID: [id number]- All Rights Reserved Reading location - IP/workstation name: [email or web address]
--- NOTE | 2018-01-05 13:52 | RADIOLOGY REPORT (SQ) ---
EXAM DESCRIPTION: HIP RIGHT AP/LATERAL COMPLETED DATE/TIME: 01/05/2018 12:40 pm REASON FOR STUDY: pain after syncope w/ assisted fall R55 SYNCOPE AND COLLAPSE COMPARISON: None. NUMBER OF VIEWS: Two views. TECHNIQUE: AP pelvis and additional frog-leg view of the right hip. LIMITATIONS: None. FINDINGS: MINERALIZATION: Normal. RIGHT HIP: No fracture or dislocation. Slight osteophytic spurring off of the greater trochanter of the hip. LEFT HIP: Slight osteophytic spurring off the greater trochanter of the hip. No fracture or dislocat ion. PUBIS AND ISCHIUM: No fracture. Slight degenerative changes at the symphysis pubis. PELVIS: No fracture. A few surgical clips in the pelvis. SACRUM: No fracture or dislocation. Mild degenerative changes at the right sacro-iliac joint. LOWER LUMBAR SPINE: No fracture or dislocation. No worrisome bone lesions. No significant disc disea se. SOFT TISSUES: No findings. OTHER: IVC filter to the right of the L3-4 disc space. IMPRESSION: 1. Mild degenerative changes at the hips and right sacro-iliac joint. 2. No acute osseous changes. TECHNICAL DOCUMENTATION: JOB ID: [id number] [employer]- All Rights Reserved Reading location - IP/workstation name: [email or web address]
[2018-01-05] MEDS ORDERED: ONDANSETRON HCL INJ/PF 4 MG/2 ML SDV IV PRN (16:38)
--- NOTE | 2018-01-05 17:33 | PDOC PROGRESS REPORT ---
Subjective Progress Note for:: 01/05/18 Subjective:: The patient is an 82-year-old female with a past medical history of dementia, hypertension, and historical PE who was admitted on 01/03/18 for multiple syncopal events followed by nausea, vomiting, and diarrhea. She was seen on morning rounds with family members present. She is sleeping soundly and does arouse slightly to gentle shake and name call but does not wake fully. The patient's family members state that she was up most of the day and overnight having visual hallucinations and agitations but has been sleeping well since early this morning. Have many concerns with regard to her medications and possible side effects as well as the risks and benefits of continuing these medications; especially the Lexapro and Exelon. We discussed in detail the risks and benefits of these medications versus trial of holding these medications until follow-up with primary care provider. At this time, the patient's family member states they would like to reduce the number of medications that the patient is on. They report that the patient's nausea, vomiting, and diarrhea have all subsided. The also reports that the patient complained of right hip pain and would like to have this evaluated to be certain that she did not have an injury during her syncopal event. They have no other questions or concerns at this time. Reason For Visit: SYNCOPE AND COLLAPSE Physical Exam Vital Signs: Temp Pulse Resp BP Pulse Ox 98.2 F 71 16 185/65 H 96 01/05/18 11:11 01/05/18 14:00 01/05/18 11:11 01/05/18 11:11 01/05/18 11:11 Intake & Output 01/04/18 01/05/18 01/06/18 06:59 06:59 06:59 Intake Total 1725 Output Total 300 Balance 1425 General appearance: PRESENT: no acute distress, well-developed, well-nourished Head exam: PRESENT: atraumatic, normocephalic Eye exam: PRESENT: conjunctiva pink, EOMI, PERRLA. ABSENT: scleral icterus Ear exam: PRESENT: normal external ear exam Mouth exam: PRESENT: moist, tongue midline Neck exam: ABSENT: carotid bruit, JVD, lymphadenopathy, thyromegaly Respiratory exam: PRESENT: clear to auscultation lisette, symmetrical, unlabored. ABSENT: rales, rhonchi, wheezes Cardiovascular exam: PRESENT: RRR, +S1, +S2. ABSENT: diastolic murmur, rubs, systolic murmur Pulses: PRESENT: normal dorsalis pedis pul Vascular exam: PRESENT: normal capillary refill GI/Abdominal exam: PRESENT: normal bowel sounds, soft. ABSENT: distended, guarding, mass, organolmegaly, rebound, tenderness Rectal exam: PRESENT: deferred Extremities exam: PRESENT: full ROM. ABSENT: calf tenderness, clubbing, pedal edema Musculoskeletal exam: PRESENT: tenderness - Right hip Neurological exam: PRESENT: other - Sleeping soundly; does not wake or participate during exam. ABSENT: motor sensory deficit Psychiatric exam: PRESENT: anxious, other - Anxiety and visual hallucinations per family members. ABSENT: homicidal ideation, suicidal ideation Skin exam: PRESENT: dry, intact, warm. ABSENT: cyanosis, rash Results Laboratory Results: 01/04/18 06:03 01/04/18 06:03 01/04/18 01/04/18 01/04/18 00:03 06:03 11:50 Troponin I < 0.012 < 0.012 < 0.012 Impressions: Head CT 01/03/18 00:00 IMPRESSION: CHRONIC CHANGES OF ATROPHY AND MICROVASCULAR ISCHEMIA. NO ACUTE PROCESS. EVIDENCE OF ACUTE STROKE: NO. Chest X-Ray 01/03/18 17:09 IMPRESSION: NO ACUTE RADIOGRAPHIC FINDING IN THE CHEST. NO SIGNIFICANT CHANGE FROM PRIOR STUDY. Acute Abdomen Series 01/04/18 00:00 IMPRESSION: NO RADIOGRAPHIC EVIDENCE FOR ACUTE ABDOMINAL DISEASE. Carotid Doppler Study 01/05/18 00:00 IMPRESSION: NO HEMODYNAMICALLY SIGNIFICANT STENOSIS. Hip/Pelvis X-Ray 01/05/18 00:00 IMPRESSION: 1. Mild degenerative changes at the hips and right sacro-iliac joint. 2. No acute osseous changes. Assessment & Plan - Diagnosis (1) Bradycardia Is this a current diagnosis for this admission?: Yes Plan: Mild bradycardia in the 50s. The patient is admitted to the medical floor on continuous cardiac telemetry. She is noted to have a heart rate of 51-77. Cardiology has been consulted; appreciate their evaluation recommendations. (2) Dementia Qualifiers: Dementia type: unspecified type Dementia behavioral disturbance: without behavioral disturbance Qualified Code(s): F03.90 - Unspecified dementia without behavioral disturbance Is this a current diagnosis for this admission?: Yes Plan: Per family and nursing report; the patient is demonstrating evidence of sundowning and possibly hospital psychosis. The family is provided reassurance. Namenda and Exelon are discontinued secondary to adverse reaction of fatigue, drowsiness and nausea, and syncopal events. A long discussion was had with the patient's 2 daughters and son-in-law present with regard to the risks and benefits of discontinuing this medications. All family members are in agreement of holding these medications due to fall risk and patient's advanced dementia stage. They agree to reevaluate these medications with the primary care provider at follow-up. Supportive care. (3) Essential hypertension Is this a current diagnosis for this admission?: Yes Plan: The patient became hypertensive today with a blood pressure of 180/80. She was previously on losartan 100 mg twice daily. We will resume losartan at 25 mg twice daily and titrate slowly to effect. Will monitor closely for hypotension. (4) Generalized weakness Is this a current diagnosis for this admission?: Yes Plan: Secondary to advanced dementia. Supportive care. (5) Syncope and collapse Is this a current diagnosis for this admission?: Yes Plan: Likely orthostatic given the patient's bradycardia, losartan, medications with side effects of her the status, fatigue and syncope. We will monitor orthostatic vital signs. The patient is receiving gentle IV fluid rehydration. MARCEL stockings are applied. PT/OT therapy has been ordered. - Time Time Spent with patient: 25-34 minutes Medications reviewed and adjusted accordingly: Yes Anticipated discharge: Home Within: within 24 hours
[2018-01-05] MEDS: ACETAMINOPHEN 325 MG TABLET PO PRN (20:30)
[2018-01-05 21:14] LABS: APPEARANCE,URINE CLEAR; BILIRUBIN,URINE NEGATIVE (NEGATIVE); COLOR,URINE YELLOW; GLUCOSE, URINE NEGATIVE (NEGATIVE); KETONES,URINE NEGATIVE (NEGATIVE); LEUKOCYTE ESTERASE,URINE NEGATIVE (NEGATIVE); NITRITE,URINE NEGATIVE (NEGATIVE); PROTEIN,URINE NEGATIVE (NEGATIVE); URINE SPECIFIC GRAVITY 1.015; UROBILINOGEN,URINE NEGATIVE mg/dL (<2.0)
[2018-01-05] MEDS: LOSARTAN POTASSIUM 25 MG TABLET PO SCH (21:47)
[2018-01-05] MEDS ORDERED: LANSOPRAZOLE 15 MG TAB.RAP.DR PO SCH (22:00)
[2018-01-05] MEDS ORDERED: ATORVASTATIN CALCIUM 10 MG TABLET PO SCH (22:00)
[2018-01-06] MEDS: DOCUSATE SODIUM 100 MG CAPSULE PO PRN (09:36)
[2018-01-06] MEDS: LOSARTAN POTASSIUM 25 MG TABLET PO SCH (09:36)
[2018-01-06] MEDS ORDERED: LOSARTAN POTASSIUM 50 MG TABLET PO SCH (10:00)
[2018-01-06] MEDS ORDERED: CYANOCOBALAMIN (VITAMIN B-12) 1,000 MCG TABLET PO SCH (10:00)
--- NOTE | 2018-01-06 12:32 | XCELERA REPORT ---
[address] [address] Transthoracic Echocardiogram Report Name: PENNY COELHO Age: 82 yrs Gender: Female : 1935 Patient Status: Inpatient Patient Location: [address] [place] [address] Study Date: 01/05/2018 10:06 AM Height: 66 in Weight: 145 lb BSA: 1.7 m2 Procedure: A complete two-dimensional transthoracic echocardiogram was performed (2D, M-mode, spectral and color flow Doppler). The study was technically adequate with some images being suboptimal in quality. Reason For Study: Syncope Ordering Physician: STEPHANIE NARANJO Performed By: Anjali Chan Interpretation Summary The left ventricular ejection fraction is normal. There is mild concentric left ventricular hypertrophy. The left ventricle is grossly normal size. Doppler measurements suggest pseudonormalized left ventricular relaxation, which is associated with grade II/IV or mild to moderate diastolic dysfunction Wall motion cannot be accurately commented on, but no definite regional wall motion abnormalities noted. The right ventricular systolic function is normal. The left atrium is mildly dilated. The right atrium is normal in size There is a mild amount of mitral regurgitation There is no mitral valve stenosis. There is no aortic valve stenosis No aortic regurgitation is present. There is a trace to mild amount of tricuspid regurgitation Right ventricular systolic pressure is at the upper limits of normal There is no pericardial effusion. MMode/2D Measurements & Calculations RVDd: 2.4 cm LVIDd: 4.1 cm FS: 43.6 % Ao root diam: 2.2 cm IVSd: 1.0 cm LVIDs: 2.3 cm EDV(Teich): 73.2 ml LVPWd: 0.96 cm ESV(Teich): 18.1 ml Ao root area: 4.0 cm2 EF(Teich): 75.2 % LA dimension: 2.6 cm Doppler Measurements & Calculations MV E max alysia: MV P1/2t max alysia: Ao V2 max: LV V1 max P.6 cm/sec 66.1 cm/sec 164.8 cm/sec 5.8 mmHg MV A max alysia: MV P1/2t: 130.8 msec Ao max PG: LV V1 max: 92.3 cm/sec 10.9 mmHg 119.9 cm/sec MV E/A: 0.71 MVA(P1/2t): 1.7 cm2 MV dec slope: 148.2 cm/sec2 PA V2 max: TR max alysia: 71.1 cm/sec 247.0 cm/sec PA max PG: TR max P.4 mmHg 2.0 mmHg Left Ventricle The left ventricle is grossly normal size. There is mild concentric left ventricular hypertrophy. The left ventricular ejection fraction is normal. Doppler measurements suggest pseudonormalized left ventricular relaxation, which is associated with grade II/IV or mild to moderate diastolic dysfunction. Wall motion cannot be accurately commented on, but no definite regional wall motion abnormalities noted. Right Ventricle The right ventricle is grossly normal size. There is normal right ventricular wall thickness. The right ventricular systolic function is normal. Atria The right atrium is normal in size. The left atrium is mildly dilated. Interarterial septum not well visualized and not well dopplered. Cannot comment on ASD/PFO presence. Mitral Valve The mitral valve is grossly normal. There is no mitral valve stenosis. There is a mild amount of mitral regurgitation. Aortic Valve The aortic valve is not well visualized secondary to technical limitations. There is no aortic valve stenosis. No aortic regurgitation is present. Tricuspid Valve The tricuspid valve is not well visualized, but is grossly normal. There is no tricuspid stenosis. There is a trace to mild amount of tricuspid regurgitation. Right ventricular systolic pressure is at the upper limits of normal. Pulmonic Valve The pulmonic valve is not well visualized. Great Vessels The aortic root is not well visualized but is probably normal size. The inferior vena cava appeared normal and decreased > 50% with respiration (RAP 5-10 mmHg). Effusions There is no pericardial effusion. : STEPHANIE NARANJO > Stephanie Naranjo
[2018-01-06 16:01] VITALS: BP 160/50
[2018-01-06] MEDS: ACETAMINOPHEN 325 MG TABLET PO PRN (16:03)
--- NOTE | 2018-01-07 09:33 | PDOC PROGRESS REPORT ---
Subjective Progress Note for:: 01/05/18 Subjective:: Patient seems to be doing better with gradual improvement. Patient has been noted to be somewhat more confused but there has been no more dizzy spells. Diarrhea seems to be resolving. Other evaluations discussed with patient's daughter.. Pt is denying any chest arm or neck discomfort. Patient denying any PND, orthopnea. Patient denied any sustained palpitations, dizziness, syncope, near syncope. Patient denying any fever chills. Patient denying any other significant discomfort. Patient is maintaining sinus rhythm. Mild sinus bradycardia noted on telemetry with heart rate in the 50s. Review of systems: Rest review of systems negative. Medications: Medications have been reviewed. Reason For Visit: SYNCOPE AND COLLAPSE Physical Exam Vital Signs: Temp Pulse Resp BP Pulse Ox 98.7 F 65 16 132/64 H 97 01/05/18 16:51 01/05/18 16:51 01/05/18 16:51 01/05/18 16:51 01/05/18 16:51 Intake & Output 01/04/18 01/05/18 01/06/18 06:59 06:59 06:59 Intake Total 1725 1310 Output Total 300 Balance 1425 1310 Exam: GENERAL: well-nourished and in no acute distress. Patient is alert but not oriented to place time or person. HEAD: Atraumatic, normocephalic. EYES: Pupils equal round and reactive to light, extraocular movements intact, sclera anicteric, conjunctiva are normal. ENT: TMs normal, nares patent, oropharynx clear without exudates. Moist mucous membranes. No oral ulcerations or bleeding gums noted NECK: supple without lymphadenopathy or JVD. Trachea is central. No cervical or axillary lymphadenopathy noted. Carotids are 2+ LUNGS: Breath sounds bibasilar fine crackles at bases. No significant dullness noted. CHEST: Palpation of chest wall shows no significant chest wall tenderness. HEART: [place] [employer], No PSH, 2/6 AUTUMN aortic area, 1/6 ortega systolic murmur mitral area, rubs or gallops. ABDOMEN: Soft, no significant tenderness appreciated, normoactive bowel sounds. No guarding, no rebound. No rigidity noted . No masses appreciated. EXTREMITIES: Pedal pulses are 1-2+, no calf tenderness noted, Trace + pedal edema noted. No clubbing or cyanosis. NEUROLOGICAL: Patient is alert, however no definite focal neurological deficit noted. PSYCH: Patient has dementia but no abnormal behavior noted. SKIN: No significant ecchymosis, rash, ulcerations or signs of pruritus noted. MUSCULOSKELETAL EXAM: No significant joint swelling noted. Results Laboratory Results: 01/04/18 06:03 01/04/18 06:03 01/04/18 01/04/18 01/04/18 00:03 06:03 11:50 Troponin I < 0.012 < 0.012 < 0.012 EKG Comments: Telemetry shows sinus rhythm without any significant bradycardia or tachycardia. Impressions: Head CT 01/03/18 00:00 IMPRESSION: CHRONIC CHANGES OF ATROPHY AND MICROVASCULAR ISCHEMIA. NO ACUTE PROCESS. EVIDENCE OF ACUTE STROKE: NO. Chest X-Ray 01/03/18 17:09 IMPRESSION: NO ACUTE RADIOGRAPHIC FINDING IN THE CHEST. NO SIGNIFICANT CHANGE FROM PRIOR STUDY. Acute Abdomen Series 01/04/18 00:00 IMPRESSION: NO RADIOGRAPHIC EVIDENCE FOR ACUTE ABDOMINAL DISEASE. Carotid Doppler Study 01/05/18 00:00 IMPRESSION: NO HEMODYNAMICALLY SIGNIFICANT STENOSIS. Hip/Pelvis X-Ray 01/05/18 00:00 IMPRESSION: 1. Mild degenerative changes at the hips and right sacro-iliac joint. 2. No acute osseous changes. Assessment & Plan - Diagnosis (1) Syncope and collapse Is this a current diagnosis for this admission?: Yes (2) Hypertension Qualifiers: Hypertension type: essential hypertension Qualified Code(s): I10 - Essential (primary) hypertension Is this a current diagnosis for this admission?: Yes (3) Dementia Qualifiers: Dementia type: unspecified type Dementia behavioral disturbance: without behavioral disturbance Qualified Code(s): F03.90 - Unspecified dementia without behavioral disturbance Is this a current diagnosis for this admission?: Yes - Notes Notes: Syncope and collapse felt to be related to relative hypovolemia and orthostatic hypotension. Antihypertensive dose is being reduced. Patient advised to increase salt and fluid intake. Patient will benefit from physical therapy. Patient does have dementia, these medication could be restarted as an outpatient. Patient may benefit from a event monitor as an outpatient. Patient could follow -up with me if she wishes. - Time Time with patient: 15-25 minutes - CODE STATUS : was discussed, patient remains DO NOT RESUSCITATE. Surrogate decision-maker unchanged. Multiple medical problems were addressed. More than 50% of the time spent coordinating care, discussing management plans with involved caregivers. Management plans discussed with involved personnels. Medical decision making was of moderate to high complexity, patient's has multiple comorbidities. Will sign off. Please reconsult if needed. Medications reviewed and adjusted accordingly: Yes
--- NOTE | 2018-01-08 07:36 | PDOC DISCHARGE SUMMARY ---
General - Admit/Disc Date/PCP Admission Date/Primary Care Provider: 01/03/18 19:19 BRITTANI BAPTISTE, DO Discharge Date: 01/06/18 - Discharge Diagnosis (1) Neurocardiogenic syncope Is this a current diagnosis for this admission?: Yes Summary: Likely due to orthostatic hypotension. I spoke to the daughter about encouraging the patient to remain hydrated (2) Orthostasis Is this a current diagnosis for this admission?: Yes Summary: Improved with IV fluids. Avoid dehydration. (3) Hypertension Is this a current diagnosis for this admission?: Yes Summary: Her losartan was cut back to 25 mg twice daily (4) Dementia Is this a current diagnosis for this admission?: Yes Summary: She has rather advanced dementia at baseline. (5) Delirium Is this a current diagnosis for this admission?: Yes Summary: Likely due to being in the hospital. This is improving (6) Ambulatory dysfunction Is this a current diagnosis for this admission?: Yes Summary: She did fairly well with physical therapy. (7) Do not resuscitate Is this a current diagnosis for this admission?: Yes - Additional Information Resuscitation Status: Do Not Resuscitate Discharge Diet: Regular Discharge Activity: Activity As Tolerated, Balance Activity w/Rest, Slowly Increase Activity, Supervised Activity Prescriptions: Losartan Potassium [Cozaar 25 mg Tablet] 25 mg PO Q12 #60 tablet Home Medications: Aspirin [Aspirin 81 mg Chewable Tablet] 81 mg PO DAILY 01/04/18 Atorvastatin Calcium [Lipitor 10 mg Tablet] 10 mg PO QHS 01/04/18 Cyanocobalamin (Vitamin B-12) [Vitamin B-12 1000 mcg Tablet] 1,000 mcg PO DAILY 01/04/18 Escitalopram Oxalate [Lexapro 10 mg Tablet] 10 mg PO DAILY 01/04/18 Omeprazole 20 mg PO QHS 01/04/18 Losartan Potassium [Cozaar 25 mg Tablet] 25 mg PO Q12 #60 tablet 01/06/18 History of Present Illness History of Present Illness: PENNY COELHO is a 82 year old female who presented to the emergency room after having a syncopal episode at home. Hospital Course Hospital Course: The patient is an 82-year-old female with a past medical history significant for dementia which has been worsening in recent months. In addition she has history of hypertension and a remote pulmonary embolus. She was admitted to the hospital on 01/03/2018 for multiple syncopal event followed by nausea vomiting and diarrhea. She was admitted to the hospital. She was found to be dehydrated and placed on IV fluids. Cardiology was consulted and it was felt that her syncopal episode was likely due to hypovolemia and orthostatic hypotension. Her antihypertensive medications were reduced and the patient did well. Physical therapy saw the patient and she had no dizzy spells and was ambulating fairly well with a walker on the day of discharge. At this point it is felt that she can safely be discharged home with close outpatient follow-up. She will be discharged today in stable condition. Physical Exam Vital Signs: Temp Pulse Resp BP Pulse Ox 98.6 F 56 L 18 160/50 H 100 01/06/18 16:00 01/06/18 16:00 01/06/18 16:00 01/06/18 16:00 01/06/18 16:00 General appearance: PRESENT: no acute distress, well-developed, well-nourished Head exam: PRESENT: atraumatic, normocephalic Mouth exam: PRESENT: moist, tongue midline Respiratory exam: PRESENT: clear to auscultation lisette. ABSENT: rales, rhonchi, wheezes Cardiovascular exam: PRESENT: RRR. ABSENT: diastolic murmur, rubs, systolic murmur GI/Abdominal exam: PRESENT: normal bowel sounds, soft. ABSENT: distended, guarding, mass, organolmegaly, rebound, tenderness Rectal exam: PRESENT: deferred Extremities exam: PRESENT: full ROM. ABSENT: calf tenderness, clubbing, pedal edema Neurological exam: PRESENT: alert, awake, oriented to person, oriented to place. ABSENT: oriented to time, oriented to situation Psychiatric exam: PRESENT: appropriate affect, normal mood. ABSENT: homicidal ideation, suicidal ideation Skin exam: PRESENT: dry, intact, warm. ABSENT: cyanosis, rash Results Laboratory Results: 01/04/18 06:03 01/04/18 06:03 01/04/18 01/04/18 01/04/18 00:03 06:03 11:50 Troponin I < 0.012 < 0.012 < 0.012 Impressions: Head CT 01/03/18 00:00 IMPRESSION: CHRONIC CHANGES OF ATROPHY AND MICROVASCULAR ISCHEMIA. NO ACUTE PROCESS. EVIDENCE OF ACUTE STROKE: NO. Chest X-Ray 01/03/18 17:09 IMPRESSION: NO ACUTE RADIOGRAPHIC FINDING IN THE CHEST. NO SIGNIFICANT CHANGE FROM PRIOR STUDY. Acute Abdomen Series 01/04/18 00:00 IMPRESSION: NO RADIOGRAPHIC EVIDENCE FOR ACUTE ABDOMINAL DISEASE. Carotid Doppler Study 01/05/18 00:00 IMPRESSION: NO HEMODYNAMICALLY SIGNIFICANT STENOSIS. Hip/Pelvis X-Ray 01/05/18 00:00 IMPRESSION: 1. Mild degenerative changes at the hips and right sacro-iliac joint. 2. No acute osseous changes. Qualifiers - * PATEINT BEING DISCHARGED WITH ANY OF THE FOLLOWING DIAGNOSIS?: No Plan Discharge Plan: She will be discharged home today in stable condition. Time Spent: Greater than 30 Minutes
== END 2018-01-06 17:15 | disposition home or self-care (01) | DRG 312 ==
LOC: ER 15:36 → OBSVTOIN 19:19 → EH 19:19 → 4S 22:32
PROVIDERS: ADMIT Internal Medicine Geriatric Medicine; ATTEND Internal Medicine Geriatric Medicine
DX: I95.1 Orthostatic hypotension (principal); E86.0 Dehydration; G30.9 Alzheimer's disease, unspecified; F05 Delirium due to known physiological condition; R00.1 Bradycardia, unspecified; I10 Essential (primary) hypertension; R41.0 Disorientation, unspecified; E78.00 Pure hypercholesterolemia, unspecified; Z66 Do not resuscitate; I45.81 Long QT syndrome; K21.9 Gastro-esophageal reflux disease without esophagitis; F32.9 Major depressive disorder, single episode, unspecified; F02.80 Dementia in other diseases classified elsewhere, unspecified severity, without behavioral disturbance, psychotic disturbance, mood disturbance, and anxiety; E89.2 Postprocedural hypoparathyroidism; R53.1 Weakness; Z79.01 Long term (current) use of anticoagulants; Z79.82 Long term (current) use of aspirin; Z86.711 Personal history of pulmonary embolism; Z79.899 Other long term (current) drug therapy; Z90.710 Acquired absence of both cervix and uterus; Z90.49 Acquired absence of other specified parts of digestive tract; Z83.3 Family history of diabetes mellitus
CPT/HCPCS: 36415; 70450; 71045; 74022; 80048; 81001; 83735; 84443; 84484; 85025; 85027; 85610; 93005; 93010; 93306; 93880; 96360; 99285; G8978-GP; G8979-GP; J2550; J7030; J7040

== ENCOUNTER 2018-01-09 11:18 | Observation (INO) | payer MEDICARE ==
--- NOTE | 2018-01-09 11:45 | ER Document Report ---
ED Medical Screen (RME) - General Chief Complaint: Leg Swelling Stated Complaint: LEG SWELLING Time Seen by Provider: 01/09/18 11:33 Mode of Arrival: Ambulatory Information source: Patient Notes: Patient is an 82 year old female with a history of blood clots, HTN and a presumed ivc filter presents to the emergency department complaining of bilateral lower extremity swelling onset last night. Daughter states the patient was recently discharged from the hospital 3 days ago and was given fluids during her stay. Daughter believes the patient could possibly have fluid retention from her stay at the hospital. Patient denies any chest pain or recent falls. GENERAL: Alert, interacts well. No acute distress. HEAD: Normocephalic, Atraumatic. NECK: Full range of motion. Supple. Trachea midline. EXTREMITIES: Moves all four extremities spontaneously. 2+ pitting edema in BLE. PSYCH: Normal affect, normal mood. I have greeted and performed a rapid initial assessment of this patient. A comprehensive ED assessment and evaluation of the patient, analysis of test results and completion of the medical decision making process will be conducted by additional ED providers. TRAVEL OUTSIDE OF THE [place] IN LAST 30 DAYS: No - Related Data Allergies/Adverse Reactions: No Known Allergies Allergy (Verified 01/09/18 11:21) Past Medical History - General Information source: Patient - Social History Chew tobacco use (# tins/day): No Frequency of alcohol use: None Drug Abuse: None - Past Medical History Cardiac Medical History: Reports: Hx DVT, Hx Hypercholesterolemia, Hx Hypertension, Hx Pulmonary Embolism - off coumadin Denies: Hx Heart Attack, Hx Heart Murmur Pulmonary Medical History: Denies: Hx Asthma, Hx Tuberculosis Neurological Medical History: Denies: Hx Cerebrovascular Accident, Hx Seizures Renal/ Medical History: Denies: Hx Peritoneal Dialysis GI Medical History: Reports: Hx Gastroesophageal Reflux Disease. Denies: Hx Hepatitis, Hx Hiatal Hernia, Hx Ulcer Musculoskeltal Medical History: Psychiatric Medical History: Reports: Hx Depression Infectious Medical History: Denies: Hx Hepatitis Past Surgical History: Reports: Hx Cholecystectomy, Hx Hysterectomy, Hx Vascular Surgery - IVC filter, Other - parathyroid resection.. Denies: Hx Mastectomy, Hx Open Heart Surgery, Hx Pacemaker - Immunizations Hx Diphtheria, Pertussis, Tetanus Vaccination: Yes History of Influenza Vaccine for 07/2017 - 12/2017 Season: Yes Influenza Administration Date for 07/2017 - 12/2017 Season: 07/27/17 Physical Exam - Vital signs Vitals: Temp Pulse Resp BP Pulse Ox 98.3 F 67 16 218/76 H 98 01/09/18 11:27 01/09/18 11:27 01/09/18 11:27 01/09/18 11:27 01/09/18 11:27 Course - Vital Signs Vital signs: Temp Pulse Resp BP Pulse Ox 98.7 F 58 L 14 147/71 H 100 01/09/18 13:18 01/09/18 13:18 01/09/18 13:18 01/09/18 13:18 01/09/18 13:18 - Laboratory Result Diagrams: 01/09/18 12:04 01/09/18 12:04 Laboratory results interpreted by me: 01/09/18 01/09/18 01/09/18 12:04 12:04 12:04 RBC 3.54 L Hgb 10.9 L Hct 32.9 L RDW 14.5 H Lymphocytes % 12.2 L Chloride 108 H NT-Pro-B Natriuret Pep 498 H Doctor's Discharge - Discharge Clinical Impression: DVT (deep venous thrombosis) Condition: Stable Disposition: ADMITTED INPATIENT Scribe Documentation - Scribe Written by Parvez:: Parvez Nicole, 01/09/2018 11:51 acting as scribe for :: Nikita
[2018-01-09 12:26] LABS: ABSOLUTE BASOPHILS # (AUTO) 0.1 10^3/uL (0.0-0.2); ABSOLUTE EOSINOPHILS # (AUTO) 0.3 10^3/uL (0.0-0.6); ABSOLUTE LYMPHOCYTES (AUTO) 0.7 10^3/uL (0.5-4.7); ABSOLUTE MONOCYTES (AUTO) 0.6 10^3/uL (0.1-1.4); ABSOLUTE NEUT (AUTO) 4.4 10^3/uL (1.7-8.2); BASOPHILS % (AUTO) 1.1 % (0-2); EOSINOPHILS % (AUTO) 4.2 % (0-6); HEMATOCRIT 32.9 % (36.0-47.0); HEMOGLOBIN 10.9 g/dL (12.0-15.5); LYMPHOCYTES % (AUTO) 12.2 % (13-45); MEAN CORPUSCULAR HEMOGLOBIN 30.9 pg (27.0-33.4); MEAN CORPUSCULAR HGB CONC 33.2 g/dL (32.0-36.0); MEAN CORPUSCULAR VOLUME 93 fl (80-97); MONOCYTES % (AUTO) 9.2 % (3-13); PLATELET COUNT 193 10^3/uL (150-450); RED BLOOD COUNT 3.54 10^6/uL (3.72-5.28); RED CELL DISTRIBUTION WIDTH 14.5 % (11.5-14.0); SEGMENTED NEUTROPHILS % (AUTO) 73.3 % (42-78); TOTAL CELLS COUNTED % (AUTO) 100 %
[2018-01-09 12:34] LABS: INTERNATIONAL RATION (INR) 1.07; PROTHROMBIN TIME 14.7 SEC (11.4-15.4)
[2018-01-09 12:42] LABS: ALANINE AMINOTRANSFERASE 25 U/L (9-52); ALKALINE PHOSPHATASE 117 U/L (38-126); ANION GAP 11 (5-19); ASPARTATE AMINO TRANSFERASE 25 U/L (14-36); BILIRUBIN,DIRECT 0.2 mg/dL (0.0-0.4); BILIRUBIN,TOTAL 1.3 mg/dL (0.2-1.3); BLOOD UREA NITROGEN 12 mg/dL (7-20); CALCIUM 9.8 mg/dL (8.4-10.2); CARBON DIOXIDE 25 mmol/L (22-30); CHLORIDE 108 mmol/L (98-107); GLUCOSE 91 mg/dL (75-110); POTASSIUM 3.9 mmol/L (3.6-5.0); SODIUM 144.1 mmol/L (137-145); TOTAL PROTEIN 6.7 g/dL (6.3-8.2)
[2018-01-09 12:56] LABS: NT PRO BNP 498 pg/mL (<450)
[2018-01-09 12:58] LABS: TROPONIN I < 0.012 ng/mL
--- NOTE | 2018-01-09 13:07 | EKG REPORT ---
SEVERITY:- ABNORMAL ECG - SINUS RHYTHM NONSPECIFIC T ABNORMALITIES, ANT-LAT LEADS : Confirmed by: Skyler Dexter MD 09-Jan-2018 13:06:16
--- NOTE | 2018-01-09 13:12 | ER Document Report ---
ED Extremity Problem, Lower - General Chief Complaint: Leg Swelling Stated Complaint: LEG SWELLING Time Seen by Provider: 01/09/18 11:33 Mode of Arrival: Ambulatory Notes: Patient has swelling of both legs added to this hospital last weekend after having passed out. She was thought to have been dehydrated and her blood pressure was too low so her blood pressure medications were changed. She was discharged home on Friday and was having some discomfort in her right leg at that time. She had an x-ray of that leg and it was negative and she was discharged home. The next day, she started having some discomfort in the left leg and then yesterday started having swelling of both lower legs. Is now too painful for her to walk. Patient has a history of pulmonary emboli 20 years ago and was treated with anticoagulants, including Coumadin. She had a [place] filter put in at that time. Patient denies any chest pains or difficulty breathing or shortness of breath. TRAVEL OUTSIDE OF THE [place] IN LAST 30 DAYS: No - Related Data Allergies/Adverse Reactions: No Known Allergies Allergy (Verified 01/09/18 11:21) Past Medical History - General Information source: Patient - Social History Smoking Status: Never Smoker Chew tobacco use (# tins/day): No Frequency of alcohol use: None Drug Abuse: None Family History: Reviewed & Not Pertinent, DM Patient has suicidal ideation: No Patient has homicidal ideation: No - Past Medical History Cardiac Medical History: Reports: Hx DVT, Hx Hypercholesterolemia, Hx Hypertension, Hx Pulmonary Embolism - off coumadin Pulmonary Medical History: GI Medical History: Reports: Hx Gastroesophageal Reflux Disease Musculoskeltal Medical History: Psychiatric Medical History: Reports: Hx Depression Infectious Medical History: Denies: Hx Hepatitis Past Surgical History: Reports: Hx Cholecystectomy, Hx Hysterectomy, Hx Vascular Surgery - IVC filter, Other - parathyroid resection. - Immunizations Hx Diphtheria, Pertussis, Tetanus Vaccination: Yes Hx Pneumococcal Vaccination: 10/27/07 Review of Systems - Review of Systems Notes: REVIEW OF SYSTEMS: CONSTITUTIONAL : Denies fever. EENT: Denies eye, ear, nose or mouth or throat pain or other symptoms. CARDIOVASCULAR: Denies chest pain. RESPIRATORY: Denies cough, chest congestion, or shortness of breath. GASTROINTESTINAL: Denies abdominal pain or nausea, vomiting, or diarrhea. GENITOURINARY: Denies difficulty or painful urinating, urinary frequency, blood in urine. MUSCULOSKELETAL: Denies back or neck pain. Denies joint pain or swelling. Bilateral pain and swelling of the lower extremities. See HPI. SKIN: Denies rash or skin lesions. NEUROLOGICAL: Denies LOC or altered mental status. Denies headache. Denies sensory loss or motor deficits. ALL OTHER SYSTEMS REVIEWED AND NEGATIVE. Physical Exam - Vital signs Vitals: Temp Pulse Resp BP Pulse Ox 98.3 F 67 16 218/76 H 98 01/09/18 11:27 01/09/18 11:27 01/09/18 11:27 01/09/18 11:27 01/09/18 11:27 Interpretation: Hypertensive - At triage, but later, blood pressure was only 140 systolic. - Notes Notes: PHYSICAL EXAMINATION: GENERAL: Well-appearing, in no acute distress. HEAD: Atraumatic, normocephalic. EYES: Pupils equal round and reactive to light, extraocular movements intact. ENT: oropharynx clear without exudates. Moist mucous membranes. NECK: Normal range of motion, supple. LUNGS: Breath sounds clear and equal bilaterally. HEART: Regular rate and rhythm without murmurs. ABDOMEN: Soft, nontender. No guarding or rebound. No masses. BACK: No tenderness throughout entire back. EXTREMITIES: Swelling of both lower extremities with about +3 pitting edema bilaterally. Painful to squeeze right lower leg posteriorly and to perform the Homans maneuver while not painful on the left side. NEUROLOGICAL: Normal speech, normal gait. Normal sensory, motor, and reflex exams. Awake, alert, and oriented x3. Cranial nerves normal. PSYCH: Normal mood, normal affect. SKIN: Warm, dry, no rashes. Course - Vital Signs Vital signs: Temp Pulse Resp BP Pulse Ox 98.7 F 58 L 14 147/71 H 100 01/09/18 13:18 01/09/18 13:18 01/09/18 13:18 01/09/18 13:18 01/09/18 13:18 - Laboratory Result Diagrams: 01/09/18 12:04 01/09/18 12:04 Laboratory results interpreted by me: 01/09/18 01/09/18 01/09/18 12:04 12:04 12:04 RBC 3.54 L Hgb 10.9 L Hct 32.9 L RDW 14.5 H Lymphocytes % 12.2 L Chloride 108 H NT-Pro-B Natriuret Pep 498 H - Diagnostic Test Radiology reviewed: Image reviewed, Reports reviewed - Bilateral venous Doppler showed patient to have clots in the deep veins of both lower legs. Discharge - Discharge Clinical Impression: DVT (deep venous thrombosis) Qualifiers: DVT location: lower extremity Laterality: bilateral Condition: Stable Disposition: ADMITTED INPATIENT Admitting Provider: Hospitalist Unit Admitted: Medical Floor
[2018-01-09] MEDS ORDERED: MAGNESIUM HYDROXIDE SUSP 30 ML UDCUP PO PRN (15:11)
[2018-01-09] MEDS ORDERED: ONDANSETRON 4 MG TAB.RAPDIS PO PRN (15:11)
[2018-01-09] MEDS ORDERED: MAG HYDROX/AL HYDROX/SIMETH SUSP 30 ML UDCUP PO PRN (15:11)
[2018-01-09] MEDS ORDERED: ACETAMINOPHEN 325 MG TABLET PO PRN (15:11)
[2018-01-09] MEDS ORDERED: ALBUTEROL SULFATE 0.083% NEB 2.5 MG/3 ML AMPUL NEB PRN (15:11)
--- NOTE | 2018-01-09 15:43 | PDOC H&P ---
History of Present Illness Admission Date/PCP: 01/09/18 14:28 BRITTANI BAPTISTE DO Patient complains of: BLE swelling and tenderness History of Present Illness: PENNY COELHO is a 82 year old female with a history of dementia of the Alzheimer' s type, hypertension, DVT and PE (Lola filter in place, previously on Coumadin) who was admitted for syncopal episodes last week felt most likely to be neurocardiogenic syncope related to orthostatic this and polypharmacy. She was seen in the emergency department today with a complaint of bilateral lower leg edema and discomfort. The patient's daughter provides most of the history. She states that she feels that the leg edema may have been present prior to her previous admission and gradually increasing as she can now recall that the patient's healthcare aide mentioned this. The patient also complained of right hip pain that was evaluated by x-ray at that time. X-ray demonstrated osteoarthritis, but no acute process. The patient's daughter reports that since discharge, the patient has been primarily sedentary and has only walked a short distance 1-2 times daily to use the restroom and has required significant assistance with her Rollator and even use of a wheelchair which is not normal. She states that she called the primary care provider today to report the tightness noted to BLE and discomfort. An appointment was unavailable for several more days and so the family was directed to the emergency department. Evaluation in the emergency department reveals hypertension, hemoglobin of 10.9 down from baseline of 13, and bilateral DVTs noted by venous Doppler study. The patient is referred to the hospitalist service for observational admission and management of DVTs. Past Medical History Cardiac Medical History: Reports: Congestive Heart Failure - Moderate diastolic heart failure, DVT, Hyperlipidema, Hypertension, Pulmonary Embolism - off coumadin; [place] filter Denies: Myocardial Infarction, Heart Murmur Pulmonary Medical History: Denies: Asthma, Tuberculosis EENT Medical History: Reports: None Neurological Medical History: Reports: None, Other - Syncope Denies: Seizures Endocrine Medical History: Reports: None Renal/ Medical History: Reports: None Malignancy Medical History: Reports: None GI Medical History: Reports: Gastroesophageal Reflux Disease Denies: Hepatitis, Hiatal Hernia Musculoskeltal Medical History: Reports: Arthritis Skin Medical History: Reports: None Psychiatric Medical History: Reports: Depression, Other - Dementia Traumatic Medical History: Reports: None Hematology: Denies: Anemia, Hemophilia, Sickle Cell Disease Infectious Medical History: Reports: None Past Surgical History Past Surgical History: Reports: Cholecystectomy, Hysterectomy, Vascular Surgery - IVC filter, Other - parathyroid resection. Denies: Amputation, Mastectomy, Pacemaker Social History Information Source: Patient, Relative Lives with: Family Smoking Status: Never Smoker Frequency of Alcohol Use: None Hx Recreational Drug Use: No Drugs: None Hx Prescription Drug Abuse: No - Advance Directive Resuscitation Status: Do Not Resuscitate Family History Family History: Reviewed & Not Pertinent, DM Parental Family History Reviewed: Yes Children Family History Reviewed: Yes Sibling(s) Family History Reviewed.: Yes Medication/Allergy Home Medications: Aspirin [Aspirin 81 mg Chewable Tablet] 81 mg PO DAILY 01/04/18 Atorvastatin Calcium [Lipitor 10 mg Tablet] 10 mg PO QHS 01/04/18 Cyanocobalamin (Vitamin B-12) [Vitamin B-12 1000 mcg Tablet] 1,000 mcg PO DAILY 01/04/18 Escitalopram Oxalate [Lexapro 10 mg Tablet] 10 mg PO DAILY 01/04/18 Omeprazole 20 mg PO QHS 01/04/18 Losartan Potassium [Cozaar 25 mg Tablet] 25 mg PO Q12 #60 tablet 01/06/18 Allergies/Adverse Reactions: No Known Allergies Allergy (Verified 01/09/18 11:21) Review of Systems Constitutional: PRESENT: weakness. ABSENT: chills, fever(s), headache(s), weight gain, weight loss Eyes: ABSENT: visual disturbances Ears: ABSENT: hearing changes Cardiovascular: ABSENT: chest pain, dyspnea on exertion, edema, orthropnea, palpitations Respiratory: ABSENT: cough, hemoptysis Gastrointestinal: ABSENT: abdominal pain, constipation, diarrhea, hematemesis, hematochezia, nausea, vomiting Genitourinary: ABSENT: dysuria, hematuria Musculoskeletal: PRESENT: other - BLE edema, discomfort. ABSENT: joint swelling Integumentary: ABSENT: rash, wounds Neurological: PRESENT: as per HPI, syncope - last week. ABSENT: abnormal gait, abnormal speech, confusion, dizziness, focal weakness Psychiatric: ABSENT: anxiety, depression, homidical ideation, suicidal ideation Endocrine: ABSENT: cold intolerance, heat intolerance, polydipsia, polyuria Hematologic/Lymphatic: ABSENT: easy bleeding, easy bruising Physical Exam Vital Signs: Temp Pulse Resp BP Pulse Ox 98.7 F 58 L 14 147/71 H 100 01/09/18 13:18 01/09/18 13:18 01/09/18 13:18 01/09/18 13:18 01/09/18 13:18 General appearance: PRESENT: no acute distress, well-developed, well-nourished Head exam: PRESENT: atraumatic, normocephalic Eye exam: PRESENT: conjunctiva pink, EOMI, PERRLA. ABSENT: scleral icterus Ear exam: PRESENT: normal external ear exam Mouth exam: PRESENT: moist, tongue midline Neck exam: ABSENT: carotid bruit, JVD, lymphadenopathy, thyromegaly Respiratory exam: PRESENT: clear to auscultation lisette, symmetrical, unlabored. ABSENT: rales, rhonchi, wheezes Cardiovascular exam: PRESENT: RRR, +S1, +S2. ABSENT: diastolic murmur, rubs, systolic murmur Pulses: PRESENT: normal dorsalis pedis pul Vascular exam: PRESENT: normal capillary refill GI/Abdominal exam: PRESENT: normal bowel sounds, soft. ABSENT: distended, guarding, mass, organolmegaly, rebound, tenderness Rectal exam: PRESENT: deferred Extremities exam: PRESENT: full ROM, tenderness - BLE, +2 edema - Nonpitting. ABSENT: calf tenderness, clubbing, pedal edema Neurological exam: PRESENT: alert, awake, oriented to person, oriented to place , oriented to time, oriented to situation, CN II-XII grossly intact, other - Pleasant, Forgetful, Intermittently confused. ABSENT: motor sensory deficit Psychiatric exam: PRESENT: appropriate affect, normal mood. ABSENT: homicidal ideation, suicidal ideation Skin exam: PRESENT: dry, intact, warm. ABSENT: cyanosis, rash Assessment & Plan - Diagnosis (1) DVT (deep venous thrombosis) Qualifiers: DVT location: lower extremity Laterality: bilateral Is this a current diagnosis for this admission?: Yes Plan: Bilateral DVTs are noted a venous Doppler ultrasound. The patient will be admitted to observational status on the medical floor. We will continue her daily aspirin therapy. We will start Eliquis 10 mg twice daily 7 days, then decrease to 5 mg twice daily for remainder of therapy. We will need to have detailed conversation with patient's family members regarding risks and benefits of this medication. Will obtain a CTA of the chest to evaluate for pulmonary embolism given the patient's recent syncopal episodes. Have spoken with radiology department and will also obtain a CT of the chest and pelvis with contrast to evaluate [place] filter. (2) Dementia Qualifiers: Dementia type: unspecified type Dementia behavioral disturbance: without behavioral disturbance Qualified Code(s): F03.90 - Unspecified dementia without behavioral disturbance Is this a current diagnosis for this admission?: Yes Plan: We will continue Lexapro 10 mg daily for mood stability. Provide supportive care. Of note, during last admission the patient did experience some sundowning with increased confusion and visual hallucinations that the family member reports improved following discharge. (3) Essential hypertension Is this a current diagnosis for this admission?: Yes Plan: We will continue patient's home medication; losartan 25 mg twice daily. This medication was decreased from 100 mg twice daily during previous admission as there was concern about potential overmedication and orthostatic hypotension. Will monitor blood pressure closely and consider dose adjustments as necessary to maintain appropriate pressures. (4) Generalized weakness Is this a current diagnosis for this admission?: Yes Plan: Will ask PT/OT to evaluate patient Fall precautions per (5) Anemia Is this a current diagnosis for this admission?: Yes Plan: Hemoglobin of 10.9 noted to be decreased from a baseline of 13. No evidence of active bleeding at this time. We will continue to monitor. (6) GERD (gastroesophageal reflux disease) Is this a current diagnosis for this admission?: Yes Plan: PPI - Time Time Spent: 50 to 70 Minutes Medications reviewed and adjusted accordingly: Yes Anticipated discharge: Home Within: within 24 hours
[2018-01-09] MEDS ORDERED: APIXABAN 5 MG TABLET PO ONE (16:00)
--- NOTE | 2018-01-09 16:19 | RADIOLOGY REPORT (SQ) ---
EXAM DESCRIPTION: CTA CHEST COMPLETED DATE/TIME: 01/09/2018 4:05 pm REASON FOR STUDY: Syncope, + bilateral DVT COMPARISON: 11/06/2013. TECHNIQUE: CT scan of the chest performed using helical scanning technique with dynamic intravenous contrast injection. Images reviewed with lung, soft tissue and bone windows. Reconstructed coronal and sagittal MPR images reviewed. Additional 3 dimensional post-processing performed to develop Maximal Intensity Projection images (MD P). All images stored on PACS. All CT scanners at this facility use dose modulation, iterative reconstruction, and/or weight based d osing when appropriate to reduce radiation dose to as low as reasonably achievable (ALARA). [facility]: Dose Right [facility]: CareDose [facility]: Dose Right [facility]: Teradose 4D [facility]: [employer] CONTRAST TYPE AND DOSE: contrast/concentration: Isovue 370.00 mg/ml; Total Contrast Delivered: 66.0 ml; Total Saline Delivered: 90.0 ml 66 mL Isovue 370- low osmolar. Contrast bolus adequate for pulmonary arteries and aorta. RENAL FUNCTION: BUN 12 creatinine 0.82. RADIATION DOSE: . LIMITATIONS: None. FINDINGS: LUNGS AND PLEURA: Mild scarring. No masses, infiltrates, pneumothorax. No pleural effusi ons, calcifications. AORTA AND GREAT VESSELS: No aneurysm. Contrast bolus not optimized for the aorta. HEART: No pericardial effusion. No significant coronary artery calcifications. PULMONARY ARTERIES: There is a possible small single nonocclusive thrombus in a small peripheral bran ch to the right lower lobe (series 3, image [id number]). HILAR AND MEDIASTINAL STRUCTURES: No identified masses or abnormal nodes. HARDWARE: None in the chest. UPPER ABDOMEN: No significant findings. Limited exam. THYROID AND OTHER SOFT TISSUES: No masses. No adenopathy. BONES: No acute or significant finding. 3D MIPS: Confirm above findings. OTHER: No other significant finding. IMPRESSION: 1. POSSIBLE SMALL NONOCCLUSIVE THROMBUS IN A SMALL PERIPHERAL BRANCH TO THE RIGHT LOWER LOBE. OTHERW ISE WELL OPACIFIED PULMONARY ARTERIES. 2. MILD PARENCHYMAL SCARRING. NO APPARENT ACUTE FINDINGS. COMMENT: Quality ID # [id number]: Final reports with documentation of one or more dose reduction techniques (e.g., Automated exposure control, adjustment of the mA and/or kV according to patient size, use of iterative reconstruction technique) TECHNICAL DOCUMENTATION: JOB ID: [id number] [employer]- All Rights Reserved Reading location - IP/workstation name: [email or web address]
--- NOTE | 2018-01-09 16:35 | XCELERA REPORT ---
[address] [address] Lower Extremity Venous Evaluation Name: PENNY COELHO Age: 82 yrs Gender: Female : 1935 Patient Status: Emergency Patient Location: ER Study Date: 01/09/2018 12:09 PM Procedure: Color flow and duplex imaging bilaterally of the veins of the lower extremities as well as the Common Femoral veins. Reason For Study: recent hospitalization, now b/l leg pain and swell Ordering Physician: KYLIE GARCIA Performed By: Anjali Chan Right Sided Venous Evaluation Abnormal vessel filling , no compression and partial Colour flow in the Common Femoral vein, also in the Greater Saphenous vein. Left Sided Venous Evaluation Abnormal vessel filling , no compression and partial Colour flow in the Common Femoral, Femoral and Popliteal veins.. Interpretation Summary Bilateral Deep venous thrombosis, Superficial phlebitis on the right. : KYLIE GARCIA > Eb Queen
--- NOTE | 2018-01-09 17:50 | RADIOLOGY REPORT (SQ) ---
EXAM DESCRIPTION: CT ABD/PELVIS WITH IV ONLY COMPLETED DATE/TIME: 01/09/2018 4:04 pm REASON FOR STUDY: syncope, BLE edema; please eval IVC filter COMPARISON: CT chest 01/09/2018 TECHNIQUE: CT scan of the abdomen and pelvis performed using helical scanning technique with dynamic intravenous contrast injection. No oral contrast. Images reviewed with lung, soft tissue, and bone windows. Reconstructed coronal and sagittal MPR images reviewed. Delayed images for evaluation of the urinary system also acquired. All images stored on PACS. All CT scanners at this facility use dose modulation, iterative reconstruction, and/or weight based d osing when appropriate to reduce radiation dose to as low as reasonably achievable (ALARA). [facility]: Dose Right [facility]: CareDose [facility]: Dose Right [facility]: Teradose 4D [facility]: [employer] CONTRAST TYPE AND DOSE: 66 cc Isovue 370- low osmolar. RENAL FUNCTION: BUN 12 creatinine 0.8 RADIATION DOSE: CT Rad equipment meets quality standard of care and radiation dose reduction techniq ues were employed. CTDIvol: 13.2 - 19.1 mGy. DLP: 2149 mGy-cm.. LIMITATIONS: None. FINDINGS: LOWER CHEST: See separate report of the CT of the chest. LIVER: There is a small cyst in the liver on image 13 series 4 SPLEEN: Normal size. No focal lesions. PANCREAS: No masses. No significant calcifications. No adjacent inflammation or peripancreatic fluid collections. Pancreatic duct not dilated. GALLBLADDER: No identified stones by CT criteria. No inflammatory changes to suggest cholecystitis. ADRENAL GLANDS: No significant masses or asymmetry. RIGHT KIDNEY AND URETER: No solid masses. No significant calcifications. No hydronephrosis or hyd roureter. LEFT KIDNEY AND URETER: No solid masses. No significant calcifications. No hydronephrosis or hydr oureter. AORTA AND VESSELS: No aneurysm. No dissection. Renal arteries, SMA, celiac without stenosis. RETROPERITONEUM: No retroperitoneal adenopathy, hemorrhage or masses. BOWEL AND PERITONEAL CAVITY: Numerous sigmoid diverticula are present with no acute inflammatory singh ges. APPENDIX: Not identified. Surgical clips are present adjacent to the cecum. PELVIS: No mass. No free fluid. Normal bladder. ABDOMINAL WALL: No masses. No hernias. BONES: The grade 1 anterolisthesis of L4 on L5 with narrowing of the disc space. No acute abnormalit y. OTHER: An inferior vena cava filter is present on the right. IMPRESSION: 1. Inferior vena cava filter is unremarkable. 2. Diverticulosis coli. 3. Anterolisthesis of L4 on L5 with degenerative disc changes. TECHNICAL DOCUMENTATION: JOB ID: [id number] Quality ID # [id number]: Final reports with documentation of one or more dose reduction techniques (e.g., Au tomated exposure control, adjustment of the mA and/or kV according to patient size, use of iterative reconstruction technique) 2010 [employer]- All Rights Reserved Reading location - IP/workstation name: [email or web address]
[2018-01-09] MEDS: LOSARTAN POTASSIUM 25 MG TABLET PO SCH (21:24)
[2018-01-09] MEDS: FAMOTIDINE 20 MG TABLET PO SCH (21:24)
[2018-01-09] MEDS ORDERED: ATORVASTATIN CALCIUM 10 MG TABLET PO SCH (22:00)
[2018-01-10 06:05] LABS: HEMATOCRIT 30.2 % (36.0-47.0); HEMOGLOBIN 10.1 g/dL (12.0-15.5); MEAN CORPUSCULAR HEMOGLOBIN 31.2 pg (27.0-33.4); MEAN CORPUSCULAR HGB CONC 33.6 g/dL (32.0-36.0); MEAN CORPUSCULAR VOLUME 93 fl (80-97); PLATELET COUNT 185 10^3/uL (150-450); RED BLOOD COUNT 3.25 10^6/uL (3.72-5.28)
[2018-01-10 06:32] LABS: ANION GAP 9 (5-19); BLOOD UREA NITROGEN 10 mg/dL (7-20); CALCIUM 9.4 mg/dL (8.4-10.2); CARBON DIOXIDE 23 mmol/L (22-30); CHLORIDE 109 mmol/L (98-107); GLUCOSE 96 mg/dL (75-110); POTASSIUM 3.7 mmol/L (3.6-5.0); SODIUM 141.3 mmol/L (137-145)
[2018-01-10] MEDS: LOSARTAN POTASSIUM 25 MG TABLET PO SCH (09:57)
[2018-01-10] MEDS: FAMOTIDINE 20 MG TABLET PO SCH (09:57)
[2018-01-10] MEDS ORDERED: ESCITALOPRAM OXALATE 10 MG TABLET PO SCH (10:00)
[2018-01-10] MEDS ORDERED: ASPIRIN 81 MG TABLET, CHEWABLE PO SCH (10:00)
[2018-01-10] MEDS ORDERED: CYANOCOBALAMIN (VITAMIN B-12) 1,000 MCG TABLET PO SCH (10:00)
[2018-01-10] MEDS ORDERED: APIXABAN 5 MG TABLET PO SCH (10:00)
--- NOTE | 2018-01-10 14:07 | PDOC DISCHARGE SUMMARY ---
General - Admit/Disc Date/PCP Admission Date/Primary Care Provider: 01/09/18 14:28 BRITTANI BAPTISTE, Discharge Date: 01/10/18 - Discharge Diagnosis (1) Pulmonary embolism Is this a current diagnosis for this admission?: Yes Summary: Possible small nonocclusive thrombus in the small peripheral branch to the right lower lobe noted by CTA. CT of the abdomen and pelvis with contrast was obtained to evaluate the patient' s IVC filter; inferior vena cava filter was found to be unremarkable. The patient was ambulated on room air and did maintain oxygen saturations of 98% . (2) DVT (deep venous thrombosis) Is this a current diagnosis for this admission?: Yes Summary: Venous Doppler study revealed bilateral deep venous thrombosis, superficial phlebitis on the right. (3) Dementia Is this a current diagnosis for this admission?: Yes (4) Essential hypertension Is this a current diagnosis for this admission?: Yes (5) Generalized weakness Is this a current diagnosis for this admission?: Yes (6) Anemia Is this a current diagnosis for this admission?: Yes (7) GERD (gastroesophageal reflux disease) Is this a current diagnosis for this admission?: Yes - Additional Information Resuscitation Status: Full Code Discharge Diet: Regular Discharge Activity: Activity As Tolerated, Balance Activity w/Rest, Keep Legs Elevated - when at rest; wear compression stockings if able Prescriptions: Apixaban [Eliquis 5 mg Tablet] 5 mg PO BID #30 tablet Apixaban [Eliquis 5 mg Tablet] 10 mg PO BID #14 tablet Home Medications: Aspirin [Aspirin 81 mg Chewable Tablet] 81 mg PO DAILY 01/04/18 Atorvastatin Calcium [Lipitor 10 mg Tablet] 10 mg PO QHS 01/04/18 Cyanocobalamin (Vitamin B-12) [Vitamin B-12 1000 mcg Tablet] 1,000 mcg PO DAILY 01/04/18 Escitalopram Oxalate [Lexapro 10 mg Tablet] 10 mg PO DAILY 01/04/18 Omeprazole 20 mg PO QHS 01/04/18 Losartan Potassium [Cozaar 25 mg Tablet] 25 mg PO Q12 #60 tablet 01/06/18 Acetaminophen [Tylenol 325 mg Tablet] 650 mg PO Q4HP PRN tablet 01/10/18 Apixaban [Eliquis 5 mg Tablet] 5 mg PO BID #30 tablet 01/10/18 Apixaban [Eliquis 5 mg Tablet] 10 mg PO BID #14 tablet 01/10/18 History of Present Illness History of Present Illness: PENNY COELHO is a 82 year old female with a history of dementia of the Alzheimer' s type, hypertension, DVT and PE ([place] filter in place, previously on Coumadin) who was admitted for syncopal episodes last week felt most likely to be neurocardiogenic syncope related to orthostatic this and polypharmacy. She was seen in the emergency department today with a complaint of bilateral lower leg edema and discomfort. The patient's daughter provides most of the history. She states that she feels that the leg edema may have been present prior to her previous admission and gradually increasing as she can now recall that the patient's healthcare aide mentioned this. The patient also complained of right hip pain that was evaluated by x-ray at that time. X-ray demonstrated osteoarthritis, but no acute process. The patient's daughter reports that since discharge, the patient has been primarily sedentary and has only walked a short distance 1-2 times daily to use the restroom and has required significant assistance with her Rollator and even use of a wheelchair which is not normal. She states that she called the primary care provider today to report the tightness noted to BLE and discomfort. An appointment was unavailable for several more days and so the family was directed to the emergency department. Evaluation in the emergency department reveals hypertension, hemoglobin of 10.9 down from baseline of 13, and bilateral DVTs noted by venous Doppler study. The patient is referred to the hospitalist service for observational admission and management of DVTs. Hospital Course Hospital Course: The patient was admitted overnight under observational status. She had presented to the emergency department with a complaint of bilateral lower leg edema. Venous Doppler study revealed bilateral DVTs and a superficial phlebitis on the right. Notably, the patient had been admitted during the previous week for a complaint of syncope. Therefore a CTA of the chest was obtained with an abdominal pelvis contrasted CT to evaluate the patient's [place] filter. A small possible nonoccluding pulmonary embolus was noted to the right peripheral lower lobe. The IVC filter was unremarkable. A long discussion was had with the patient and two of her daughters. We discussed the risks and benefits of DOAC therapy. The patient did not fully participate and was noted to fall asleep during our discussion, however, she is noted to have advanced dementia. The daughters asked many appropriate questions with regard to bleeding risk versus risks of leaving the DVT and PE untreated. They are in agreement with placing the patient on Eliquis and following up with her primary care provider. They are provided patient information on pulmonary embolus and Eliquis. The patient was ambulated on room air and maintained oxygen saturations at 98%. She will be discharged home. She is provided prescriptions for Eliquis. She is encouraged to follow-up with her primary care provider as scheduled next week. We will attempt to arrange home health PT/OT in the interm. Physical Exam Vital Signs: Temp Pulse Resp BP Pulse Ox 99.0 F 56 L 17 149/59 H 95 01/10/18 11:50 01/10/18 11:50 01/10/18 11:50 01/10/18 11:50 01/10/18 11:50 Intake & Output 01/09/18 01/10/18 01/11/18 06:59 06:59 06:59 Intake Total 0 Balance 0 Weight 70.6 kg General appearance: PRESENT: no acute distress, hard of hearing, well-developed , well-nourished Head exam: PRESENT: atraumatic, normocephalic Eye exam: PRESENT: conjunctiva pink, EOMI, PERRLA. ABSENT: scleral icterus Ear exam: PRESENT: normal external ear exam Mouth exam: PRESENT: moist, tongue midline Neck exam: ABSENT: carotid bruit, JVD, lymphadenopathy, thyromegaly Respiratory exam: PRESENT: clear to auscultation lisette, symmetrical, unlabored. ABSENT: rales, rhonchi, wheezes Cardiovascular exam: PRESENT: RRR, +S1, +S2. ABSENT: diastolic murmur, rubs, systolic murmur Pulses: PRESENT: normal dorsalis pedis pul Vascular exam: PRESENT: normal capillary refill GI/Abdominal exam: PRESENT: normal bowel sounds, soft. ABSENT: distended, guarding, mass, organolmegaly, rebound, tenderness Rectal exam: PRESENT: deferred Extremities exam: PRESENT: full ROM, +2 edema - BLE edema; nonpitting. ABSENT: calf tenderness, clubbing, pedal edema Neurological exam: PRESENT: alert, awake, oriented to person, oriented to place , oriented to time, oriented to situation, CN II-XII grossly intact. ABSENT: motor sensory deficit Psychiatric exam: PRESENT: appropriate affect, normal mood. ABSENT: homicidal ideation, suicidal ideation Skin exam: PRESENT: dry, intact, warm. ABSENT: cyanosis, rash Results Laboratory Results: 01/10/18 05:30 01/10/18 05:30 01/10/18 01/10/18 05:30 05:30 WBC 6.0 RBC 3.25 L Hgb 10.1 L Hct 30.2 L MCV 93 MCH 31.2 MCHC 33.6 RDW 14.0 Plt Count 185 Sodium 141.3 Potassium 3.7 Chloride 109 H Carbon Dioxide 23 Anion Gap 9 BUN 10 Creatinine 0.74 Est GFR ( Amer) > 60 Est GFR (Non-Af Amer) > 60 Glucose 96 Calcium 9.4 Impressions: Abdomen/Pelvis CT 01/09/18 00:00 IMPRESSION: 1. Inferior vena cava filter is unremarkable. 2. Diverticulosis coli. 3. Anterolisthesis of L4 on L5 with degenerative disc changes. Chest/Abdomen CTA 01/09/18 00:00 IMPRESSION: 1. POSSIBLE SMALL NONOCCLUSIVE THROMBUS IN A SMALL PERIPHERAL BRANCH TO THE RIGHT LOWER LOBE. OTHERWISE WELL OPACIFIED PULMONARY ARTERIES. 2. MILD PARENCHYMAL SCARRING. NO APPARENT ACUTE FINDINGS. Qualifiers - * PATEINT BEING DISCHARGED WITH ANY OF THE FOLLOWING DIAGNOSIS?: No
[2018-01-10 14:23] VITALS: BP 153/57
== END 2018-01-10 15:20 | disposition home health service (06) ==
LOC: ER 11:18 → EH 14:28 → INTOOBSV 14:28 → 4S 01-10 00:12
PROVIDERS: ADMIT Family Medicine; ATTEND Family Medicine
DX: I26.99 Other pulmonary embolism without acute cor pulmonale (principal); I82.4Z3 Acute embolism and thrombosis of unspecified deep veins of distal lower extremity, bilateral; I80.01 Phlebitis and thrombophlebitis of superficial vessels of right lower extremity; I10 Essential (primary) hypertension; R53.1 Weakness; D64.9 Anemia, unspecified; K21.9 Gastro-esophageal reflux disease without esophagitis; G30.9 Alzheimer's disease, unspecified; F02.80 Dementia in other diseases classified elsewhere, unspecified severity, without behavioral disturbance, psychotic disturbance, mood disturbance, and anxiety; M25.551 Pain in right hip; Z95.828 Presence of other vascular implants and grafts; Z90.49 Acquired absence of other specified parts of digestive tract; Z66 Do not resuscitate; Z79.82 Long term (current) use of aspirin; Z79.899 Other long term (current) drug therapy; Z90.710 Acquired absence of both cervix and uterus
CPT/HCPCS: 93005; 99285; 36415 ×2; 85025; 85027; 85610; 80048; 80053; 84484; 83880; 93970 ×2; 71275; 74177; 93010; 97163; A9270 ×11; J3490; G8978; G8979

== ENCOUNTER 2018-06-13 | Inpatient (IN) | payer MEDICARE ==
--- NOTE | 2018-06-13 00:26 | ER Document Report ---
ED Fever - General Chief Complaint: Fever Stated Complaint: FEVER Time Seen by Provider: 06/13/18 00:13 Notes: Patient is an 82-year-old female comes emergency department for chief complaint of fever, she vomited up what looked like sputum per family members earlier, temperature up to 104 earlier today, patient today has become progressively confused and now she is very altered from her baseline. EMS recorded temperature of 102.1, given 650 mg of Tylenol. Also given 324 mg of aspirin and 1 sublingual nitroglycerin. Patient does have Alzheimer's but family states that normally she can still answer questions appropriately. No obvious cough, complaints of pain, patient was complaining of discomfort with urination over the past 1-2 days however. Past medical history includes DVT, on Eliquis, she also has an IVC filter, hypertension, no history of cardiac disease or diabetes. EMS reported that patient was complaining of chest pain but family denies this, family had also given 650 mg of Tylenol, EMS also gave 324 mg of aspirin and 1 sublingual nitroglycerin. TRAVEL OUTSIDE OF THE [place] IN LAST 30 DAYS: No - Related Data Allergies/Adverse Reactions: latex Allergy (Verified 06/13/18 00:52) Past Medical History - General Information source: Relative - daughter - Social History Smoking Status: Never Smoker Frequency of alcohol use: None Drug Abuse: None Lives with: Family Family History: Reviewed & Not Pertinent, DM - Past Medical History Cardiac Medical History: Reports: Hx DVT, Hx Hypercholesterolemia, Hx Hypertension, Hx Pulmonary Embolism - off coumadin Denies: Hx Heart Attack, Hx Heart Murmur Pulmonary Medical History: Denies: Hx Asthma, Hx Tuberculosis Neurological Medical History: Denies: Hx Cerebrovascular Accident, Hx Seizures Renal/ Medical History: Denies: Hx Peritoneal Dialysis GI Medical History: Reports: Hx Gastroesophageal Reflux Disease. Denies: Hx Hepatitis, Hx Hiatal Hernia, Hx Ulcer Musculoskeletal Medical History: Psychiatric Medical History: Reports: Hx Depression Infectious Medical History: Denies: Hx Hepatitis Past Surgical History: Reports: Hx Cholecystectomy, Hx Hysterectomy, Hx Vascular Surgery - IVC filter, Other - parathyroid resection.. Denies: Hx Mastectomy, Hx Open Heart Surgery, Hx Pacemaker - Immunizations Hx Diphtheria, Pertussis, Tetanus Vaccination: Yes Hx Pneumococcal Vaccination: 10/27/07 Review of Systems - Review of Systems Constitutional: See HPI EENT: No symptoms reported Cardiovascular: No symptoms reported Respiratory: No symptoms reported Gastrointestinal: See HPI Genitourinary: See HPI Female Genitourinary: No symptoms reported Musculoskeletal: No symptoms reported Skin: No symptoms reported Hematologic/Lymphatic: No symptoms reported Neurological/Psychological: See HPI Physical Exam - Vital signs Vitals: Temp 99.6 F 06/13/18 00:12 - Notes Notes: GENERAL: Patient ill-appearing but responsive HEAD: Normocephalic, atraumatic. EYES: Pupils equal, round, and reactive to light. Extraocular movements intact. ENT: Oral mucosa dry, tongue midline. [Nares patent, no nasal septal hematoma, TM's intact.] NECK: Full range of motion. Supple. Trachea midline. LUNGS: Clear to auscultation bilaterally, no tachypnea, a few possible scattered rhonchi, no rales. HEART: Regular rate and rhythm. No murmur. Normal distal pulses and capillary refill. ABDOMEN: Soft, non-tender. Non-distended. Bowel sounds present in all 4 quadrants. EXTREMITIES: Moves all 4 extremities spontaneously. No edema, normal radial and dorsalis pedis pulses bilaterally. No cyanosis. BACK: no cervical, thoracic, lumbar midline tenderness. No saddle anesthesia, normal distal neurovascular exam. NEUROLOGICAL: Confused, unable to answer any questions appropriately although patient will follow commands. [cranial nerves II through XII grossly intact]. SKIN: Flushed, warm Course - Re-evaluation Re-evalutation: Patient will follow commands but she is unable to answer any questions. Family reports this is well below her baseline. Nontender abdomen. Questionable scattered rhonchi in the lungs but no cough or tachypnea. Skin exam is unremarkable. Initiating septic workup. CBC shows normal white blood cell count, elevated neutrophils, no bands. Chemistry shows hypokalemia, magnesium checked and is also low, giving both. I suspect patient has urosepsis without shock, Rocephin was started. CT of the head unremarkable, chest x-ray still pending, urine does show gross infection, cultures placed. 06/13/18 02:15 Patient has begun to become hypotensive, first in the low 100s, now in the 90s systolic. Map is dropping. Concern for developing shock. Giving two IV fluid boluses, will closely monitor. Patient is on Eliquis. Patient is a DO NOT RESUSCITATE status, I confirm this with her power of criminal defense attorney daughter Gertrudis at bedside. Discussed with Dr. Espinoza. If she does not respond to fluid bolus she will need a central line with pressors. 06/13/18 Patient did not respond IV fluid bolus challenge, discussion was made with family members, decision was made to place central line, femoral line was placed because of patient being on blood thinner and concern for hematoma, this was placed without any complication. Levophed was started. After this map came up to 65. Patient does appear clinically improved. Will discuss with hospitalist for ICU admission for urosepsis with shock. Family states appreciation and agreement. - Vital Signs Vital signs: Temp Pulse Resp BP Pulse Ox 97.8 F 16 103/49 L 98 06/13/18 05:11 06/13/18 05:11 06/13/18 05:11 06/13/18 05:11 - Laboratory Result Diagrams: 06/13/18 00:34 06/13/18 00:34 Laboratory results interpreted by me: 06/13/18 06/13/18 06/13/18 00:34 00:34 00:34 Hgb 11.9 L Hct 35.1 L Seg Neuts % (Manual) 91 H Lymphocytes % (Manual) 4 L Monocytes % (Manual) 1 L Abs Lymphs (Manual) 0.3 L PT 18.4 H VBG pH Potassium 2.6 L* Glucose 112 H Magnesium Total Bilirubin 2.7 H Direct Bilirubin 0.5 H Total Protein 6.2 L Albumin 3.3 L Urine Protein Urine Blood Urine Nitrite Ur Leukocyte Esterase Urine Ascorbic Acid 06/13/18 06/13/18 06/13/18 00:34 00:34 00:45 Hgb Hct Seg Neuts % (Manual) Lymphocytes % (Manual) Monocytes % (Manual) Abs Lymphs (Manual) PT VBG pH 7.44 H Potassium Glucose Magnesium 1.3 L Total Bilirubin Direct Bilirubin Total Protein Albumin Urine Protein 100 H Urine Blood SMALL H Urine Nitrite POSITIVE H Ur Leukocyte Esterase LARGE H Urine Ascorbic Acid 40 H Procedures - Central Line right femoral Consent obtained: Yes Central line pre-insertion: Sterile PPE donned, Chloraprep applied, Sterile drapes applied Central line lumen type: Triple Anesthetic type: 1% Lidocaine mL's of anesthesia: 5 Ultrasound guided: Yes Line secured with sutures: Yes Central line post-insertion: Blood return from lumens, Biopatch applied, Sutured , Sterile dressing applied Complications: No Critical Care Note - Critical Care Note Total time excluding time spent on procedures (mins): 45 - Septic shock Comments: Please allow 45 minutes of critical care time separate from time spent on procedures for evaluation and treatment of patient with urinary tract infection , sepsis, progression to septic shock, requiring IV fluid resuscitation, antibiotics, replacement of magnesium and potassium, discussion with family members, multiple re-evaluations, consultation and admission to the ICU. Discharge - Discharge Clinical Impression: Septic shock, Hypokalemia, Hypomagnesemia Fever Qualifiers: Fever type: unspecified Qualified Code(s): R50.9 - Fever, unspecified Altered mental status Qualifiers: Altered mental status type: unspecified Qualified Code(s): R41.82 - Altered mental status, unspecified Urinary tract infection Qualifiers: Urinary tract infection type: site unspecified Hematuria presence: without hematuria Qualified Code(s): N39.0 - Urinary tract infection, site not specified Condition: Serious Disposition: ADMITTED INPATIENT Admitting Provider: Hospitalist Unit Admitted: ICU
[2018-06-13 00:45] LABS: HEMATOCRIT 35.1 % (36.0-47.0); HEMOGLOBIN 11.9 g/dL (12.0-15.5); MEAN CORPUSCULAR HEMOGLOBIN 30.2 pg (27.0-33.4); MEAN CORPUSCULAR HGB CONC 33.8 g/dL (32.0-36.0); MEAN CORPUSCULAR VOLUME 89 fl (80-97); PLATELET COUNT 250 10^3/uL (150-450); RED BLOOD COUNT 3.93 10^6/uL (3.72-5.28); RED CELL DISTRIBUTION WIDTH 13.5 % (11.5-14.0); WHITE BLOOD COUNT 6.7 10^3/uL (4.0-10.5)
[2018-06-13 00:51] LABS: INTERNATIONAL RATION (INR) 1.45; PROTHROMBIN TIME 18.4 SEC (11.4-15.4)
[2018-06-13 01:02] LABS: ABSOLUTE LYMPHOCYTES# (MANUAL) 0.3 10^3/uL (0.5-4.7); ABSOLUTE MONOCYTES # (MANUAL) 0.1 10^3/uL (0.1-1.4); ABSOLUTE NEUTROPHILS# (MANUAL) 6.4 10^3/uL (1.7-8.2); BAND NEUTROPHILS % (MANUAL) 4 % (3-5); BASOPHILS % (MANUAL) 0 % (0-2); EOSINOPHILS % (MANUAL) 0 % (0-6); HYPOCHROMASIA 1+; LYMPHOCYTES % (MANUAL) 4 % (13-45); MONOCYTES % (MANUAL) 1 % (3-13); PLATELET COMMENT ADEQUATE; SEGMENTED NEUTROPHILS % (MAN) 91 % (42-78); TOTAL CELLS COUNTED 100; TOXIC GRANULATION 1+
[2018-06-13 01:04] LABS: APPEARANCE,URINE CLOUDY; BILIRUBIN,URINE NEGATIVE (NEGATIVE); COLOR,URINE YELLOW; GLUCOSE, URINE NEGATIVE (NEGATIVE); KETONES,URINE NEGATIVE (NEGATIVE); LEUKOCYTE ESTERASE,URINE LARGE (NEGATIVE); NITRITE,URINE POSITIVE (NEGATIVE); PROTEIN,URINE 100 mg/dL (NEGATIVE); URINE SPECIFIC GRAVITY 1.013; UROBILINOGEN,URINE NEGATIVE mg/dL (<2.0)
[2018-06-13 01:07] LABS: ALANINE AMINOTRANSFERASE 22 U/L (9-52); ALBUMIN 3.3 g/dL (3.5-5.0); ALKALINE PHOSPHATASE 105 U/L (38-126); ANION GAP 12 (5-19); ASPARTATE AMINO TRANSFERASE 27 U/L (14-36); BILIRUBIN,DIRECT 0.5 mg/dL (0.0-0.4); BILIRUBIN,TOTAL 2.7 mg/dL (0.2-1.3); BLOOD UREA NITROGEN 12 mg/dL (7-20); CALCIUM 8.8 mg/dL (8.4-10.2); CARBON DIOXIDE 25 mmol/L (22-30); CHLORIDE 107 mmol/L (98-107); GLUCOSE 112 mg/dL (75-110); SODIUM 143.5 mmol/L (137-145); TOTAL PROTEIN 6.2 g/dL (6.3-8.2)
[2018-06-13] MEDS ORDERED: CEFTRIAXONE INJ 1000 MG VIAL IV ONE (01:08)
[2018-06-13 01:10] LABS: POTASSIUM 2.6 mmol/L (3.6-5.0)
[2018-06-13 01:15] LABS: VENOUS BLOOD BASE EXCESS 3.2 mmol/L; VENOUS BLOOD HCO3 27.7 mmol/L (20-32); VENOUS BLOOD PCO2 41.9 mmHg (35-63); VENOUS BLOOD PH 7.44 (7.30-7.42)
--- NOTE | 2018-06-13 01:18 | RADIOLOGY REPORT (SQ) ---
EXAM DESCRIPTION: CT HEAD WITHOUT IV CONTRAST COMPLETED DATE/TME: 06/13/2018 00:20 CLINICAL HISTORY: 82 years Female, AMS, on eliquis COMPARISON: 3.08.13, report only TECHNIQUE: No contrast. Coronal and sagittal reformat. This exam was performed according to our departmental dose-optimization program, which includes automated exposure control, adjustment of the mA and/or kV according to patient size and/or use of iterative reconstruction technique. FINDINGS: No hemorrhage. No mass, mass effect, or midline shift. Mild parenchymal volume loss, moderate white matter microangiopathy, lacunar disease of the claustrum bilaterally. Brain and extra-axial structures appear otherwise intact. IMPRESSION: No acute findings.
[2018-06-13] MEDS ORDERED: NORMAL SALINE 1000 ML 1,000 ML IV ONE ×2 (01:27→01:44)
[2018-06-13] MEDS ORDERED: LEVOFLOXACIN 750 MG/D5W RTU 750 MG/150 ML RTUPB IV ONE (01:59)
[2018-06-13] MEDS: POTASSI CL 20 MEQ/50 ML RIDER 20 MEQ/50 ML RTUPB IV SCH ×3 (02:08→08:48)
--- NOTE | 2018-06-13 02:16 | RADIOLOGY REPORT (SQ) ---
Chest single view on 06/13/2018 at 1:09 AM CLINICAL INDICATION: Altered mental status, fever, hypoxia COMPARISON: 01/03/2018 FINDINGS: Mild cardiomegaly is noted. Vascular calcification is noted in the aorta. Hilar and mediastinal contours are within normal limits. The lungs are clear. Pulmonary vascularity is within normal limits. IMPRESSION: No acute disease.
[2018-06-13] MEDS ORDERED: DEXTROSE 5%-WATER 250 ML with NOREPINEPHRINE BITARTRATE 4 MG IV PRN ×4 (03:09→04:20)
[2018-06-13] MEDS ORDERED: NOREPINEPHRINE BITARTRATE INJ/PF 4 MG/4 ML SDV IV ONE (03:39)
[2018-06-13] MEDS: MAGNESIUM SULFATE/D5W 1 GM/100 ML RTUPB IV SCH ×2 (03:47→04:55)
[2018-06-13] MEDS ORDERED: MAG HYDROX/AL HYDROX/SIMETH SUSP 30 ML UDCUP PO PRN (04:16)
[2018-06-13] MEDS ORDERED: IPRATROPIUM/ALBUTEROL 0.5-2.5 MG/3 ML AMPUL NEB PRN (04:16)
[2018-06-13] MEDS ORDERED: ACETAMINOPHEN 325 MG TABLET PO PRN (04:16)
[2018-06-13] MEDS ORDERED: NORMAL SALINE 1000 ML 1,000 ML IV SCH (04:30)
[2018-06-13] MEDS ORDERED: VANCOMYCIN HCL 0 MG in DEXTROSE 5%-WATER 250 ML IV NR (04:30)
[2018-06-13] MEDS ORDERED: VANCOMYCIN HCL 1,500 MG in DEXTROSE 5%-WATER 250 ML IV ONE (05:30)
--- NOTE | 2018-06-13 05:31 | PDOC H&P ---
History of Present Illness Admission Date/PCP: 06/13/18 04:40 Patient complains of: Fever and confusion History of Present Illness: PENNY COELHO is a 82 year old female with a past medical history of pulmonary emboli on Eliquis, hypertension, herpes zoster and dementia. Presents with fever of 102.1, vomiting gastric content 1 and confusion 24 hours. Patient is unable to localize symptoms. Denies chest pain palpitations or shortness of breath. In the emergency room she is found to have pyuria and hypotension requiring a central line, IV fluid challenge, levofed and empiric antibiotics. She is referred to the hospitalist for admission. Patient's daughter is at bedside give history of sundowning. Verified DNR CODE STATUS Past Medical History Cardiac Medical History: Reports: DVT, Hyperlipidema, Hypertension, Pulmonary Embolism - off coumadin Denies: Myocardial Infarction, Heart Murmur Pulmonary Medical History: Denies: Asthma, Tuberculosis Neurological Medical History: Denies: Seizures GI Medical History: Reports: Gastroesophageal Reflux Disease Denies: Hepatitis, Hiatal Hernia Musculoskeltal Medical History: Psychiatric Medical History: Reports: Dementia, Depression Hematology: Denies: Anemia, Hemophilia, Sickle Cell Disease Past Surgical History Past Surgical History: Reports: Cholecystectomy, Hysterectomy, Vascular Surgery - IVC filter, Other - parathyroid resection. Denies: Amputation, Mastectomy, Pacemaker Social History Information Source: Patient, Relative, [facility] Records Lives with: Family Smoking Status: Never Smoker Frequency of Alcohol Use: None Hx Recreational Drug Use: No Drugs: None Hx Prescription Drug Abuse: No - Advance Directive Resuscitation Status: Do Not Resuscitate Family History Family History: DM, Hypertension Parental Family History Reviewed: Yes Children Family History Reviewed: Yes Sibling(s) Family History Reviewed.: Yes Medication/Allergy Home Medications: Aspirin [Aspirin 81 mg Chewable Tablet] 81 mg PO DAILY 01/04/18 Atorvastatin Calcium [Lipitor 10 mg Tablet] 10 mg PO QHS 01/04/18 Cyanocobalamin (Vitamin B-12) [Vitamin B-12 1000 mcg Tablet] 1,000 mcg PO DAILY 01/04/18 Escitalopram Oxalate [Lexapro 10 mg Tablet] 10 mg PO DAILY 01/04/18 Omeprazole 20 mg PO QHS 01/04/18 Losartan Potassium [Cozaar 25 mg Tablet] 25 mg PO Q12 #60 tablet 01/06/18 Acetaminophen [Tylenol 325 mg Tablet] 650 mg PO Q4HP PRN tablet 01/10/18 Apixaban [Eliquis 5 mg Tablet] 5 mg PO BID #30 tablet 01/10/18 Apixaban [Eliquis 5 mg Tablet] 10 mg PO BID #14 tablet 01/10/18 Allergies/Adverse Reactions: latex Allergy (Verified 06/13/18 00:52) Review of Systems ROS unobtainable: Due to mental status - Dementia Physical Exam Vital Signs: Temp Pulse Resp BP Pulse Ox 97.8 F 16 103/49 L 98 06/13/18 05:11 06/13/18 05:11 06/13/18 05:11 06/13/18 05:11 Intake & Output 06/11/18 06/12/18 06/13/18 11:59 11:59 11:59 Intake Total 100 Balance 100 Weight 70 kg General appearance: PRESENT: cooperative, mild distress. ABSENT: disheveled, hard of hearing Head exam: PRESENT: atraumatic, normocephalic Eye exam: PRESENT: conjunctiva pink, EOMI, PERRLA. ABSENT: scleral icterus Ear exam: PRESENT: normal external ear exam Mouth exam: PRESENT: dry mucosa, tongue midline. ABSENT: laceration Teeth exam: ABSENT: dental caries, dental tenderness, edentulous Neck exam: ABSENT: carotid bruit, JVD, lymphadenopathy, thyromegaly Respiratory exam: PRESENT: clear to auscultation lisette. ABSENT: rales, rhonchi, wheezes Cardiovascular exam: PRESENT: RRR. ABSENT: diastolic murmur, rubs, systolic murmur Pulses: PRESENT: normal dorsalis pedis pul Vascular exam: PRESENT: normal capillary refill GI/Abdominal exam: PRESENT: normal bowel sounds, soft. ABSENT: distended, guarding, mass, organolmegaly, rebound, tenderness Rectal exam: PRESENT: deferred Extremities exam: PRESENT: full ROM. ABSENT: calf tenderness, clubbing, pedal edema Neurological exam: PRESENT: alert, awake, oriented to person, CN II-XII grossly intact. ABSENT: motor sensory deficit Psychiatric exam: PRESENT: appropriate affect, normal mood. ABSENT: homicidal ideation, suicidal ideation Skin exam: PRESENT: dry, intact, warm. ABSENT: cyanosis, rash Results Impressions: Chest X-Ray 06/13/18 00:20 IMPRESSION: No acute disease. Head CT 06/13/18 00:20 IMPRESSION: No acute findings. Assessment & Plan - Diagnosis (1) Urinary tract infection Qualifiers: Urinary tract infection type: site unspecified Hematuria presence: without hematuria Qualified Code(s): N39.0 - Urinary tract infection, site not specified Is this a current diagnosis for this admission?: Yes Plan: Empiric antibiotics, follow-up CBC and culture (2) Fever Qualifiers: Fever type: unspecified Qualified Code(s): R50.9 - Fever, unspecified Is this a current diagnosis for this admission?: Yes Plan: Secondary to #1, Tylenol and symmetric management (3) Septic shock Is this a current diagnosis for this admission?: Yes Plan: Secondary #1, ICU admission requiring Levophed and IV fluid challenge, - Time Time Spent: 50 to 70 Minutes - Inpatient Certification Medical Necessity: Need Close Monitoring Due to Risk of Patient Decompensation
[2018-06-13] MEDS ORDERED: LORAZEPAM INJ 2 MG/1 ML VIAL ONE (06:44)
[2018-06-13] MEDS ORDERED: LORAZEPAM INJ 2 MG/1 ML VIAL IV ONE (07:00)
--- NOTE | 2018-06-13 07:16 | EKG REPORT ---
SEVERITY:- ABNORMAL ECG - SINUS OR ECTOPIC ATRIAL RHYTHM FIRST DEGREE AV BLOCK ABNORMAL T, CONSIDER ISCHEMIA, LATERAL LEADS : Confirmed by: Skyler Dexter MD 13-Jun-2018 07:14:50
[2018-06-13 07:17] LABS: CREATINE KINASE MB 0.45 ng/mL (<4.55)
[2018-06-13 07:18] LABS: TROPONIN I < 0.012 ng/mL
[2018-06-13] MEDS ORDERED: ACETAMINOPHEN 650 MG SUPP.RECT PR ONE (07:18)
[2018-06-13] MEDS ORDERED: ACETAMINOPHEN 650 MG SUPP.RECT PR PRN (07:31)
[2018-06-13] MEDS ORDERED: ONDANSETRON HCL INJ/PF 4 MG/2 ML SDV IV PRN (08:30)
[2018-06-13 08:34] LABS: POTASSIUM 4.1 mmol/L (3.6-5.0)
[2018-06-13] MEDS: APIXABAN 5 MG TABLET PO SCH ×2 (09:00→17:25)
[2018-06-13] MEDS: ASPIRIN 81 MG TABLET, CHEWABLE PO SCH (09:00)
[2018-06-13] MEDS ORDERED: VANCOMYCIN HCL 1,000 MG in DEXTROSE 5%-WATER 250 ML IV SCH (10:00)
[2018-06-13] MEDS: PIPERACILLIN SODIUM/TAZOBACTAM 3.375 GM in NORMAL SALINE 100 ML IV SCH ×3 (11:47→23:48)
[2018-06-13 14:25] LABS: CREATINE KINASE MB 0.74 ng/mL (<4.55)
[2018-06-13 14:26] LABS: TROPONIN I < 0.012 ng/mL
--- NOTE | 2018-06-13 15:12 | PDOC PROGRESS REPORT ---
Subjective Progress Note for:: 06/13/18 Subjective:: Assume care. Patient was admitted for septic shock secondary to pyelonephritis. Patient currently comfortable in bed. Still getting Levophed at 4 mics at the moment. Denies acute complaints note that she does have baseline dementia. Per RN, patient is still running a fever at 101.8. Reason For Visit: UTI SEPSIS Physical Exam Vital Signs: Temp Pulse Resp BP Pulse Ox 99.3 F 63 13 110/50 L 97 06/13/18 10:27 06/13/18 10:27 06/13/18 14:00 06/13/18 13:53 06/13/18 14:00 Intake & Output 06/12/18 06/13/18 06/14/18 06:59 06:59 06:59 Intake Total 182 29 Output Total 150 480 Balance 32 -451 Weight 154 lb 5.177 oz General appearance: PRESENT: no acute distress, well-developed, well-nourished Neck exam: ABSENT: carotid bruit, JVD, lymphadenopathy, thyromegaly Respiratory exam: PRESENT: clear to auscultation lisette. ABSENT: rales, rhonchi, wheezes Cardiovascular exam: PRESENT: RRR. ABSENT: diastolic murmur, rubs, systolic murmur GI/Abdominal exam: PRESENT: normal bowel sounds, soft. ABSENT: distended, guarding, mass, organolmegaly, rebound Rectal exam: PRESENT: deferred Neurological exam: PRESENT: alert Results Laboratory Results: 06/13/18 06:30 06/13/18 06:30 Potassium 4.1 D Magnesium 1.9 06/13/18 06/13/18 06/13/18 06:30 06:30 13:45 Creatine Kinase 51 94 CK-MB (CK-2) 0.45 Troponin I < 0.012 06/13/18 13:45 Creatine Kinase CK-MB (CK-2) 0.74 Troponin I < 0.012 Impressions: Chest X-Ray 06/13/18 00:20 IMPRESSION: No acute disease. Head CT 06/13/18 00:20 IMPRESSION: No acute findings. Assessment & Plan - Diagnosis (1) Septic shock Is this a current diagnosis for this admission?: Yes Plan: Septic shock secondary to acute pyelonephritis. Patient did present with fever , tachypnea and hypotension not responding to IV fluid resuscitation. We will switch antibiotics to Zosyn. Discontinue vancomycin. Follow-up on urine and blood cultures. Continue IV fluids. Wean down on pressor as tolerated to keep a MAP of more than 65. (2) Pulmonary embolism Is this a current diagnosis for this admission?: Yes Plan: Continue Eliquis for history of PE (3) Hypertension Qualifiers: Hypertension type: essential hypertension Qualified Code(s): I10 - Essential (primary) hypertension Is this a current diagnosis for this admission?: Yes Plan: Hold home meds losartan and amlodipine due to on going septic shock.
[2018-06-13 19:36] LABS: CREATINE KINASE MB 0.84 ng/mL (<4.55)
[2018-06-13 19:45] LABS: TROPONIN I < 0.012 ng/mL
[2018-06-13] MEDS: ATORVASTATIN CALCIUM 10 MG TABLET PO SCH (22:10)
[2018-06-14] MEDS: NORMAL SALINE 1000 ML 1,000 ML IV PRN ×2 (05:02→22:01)
[2018-06-14] MEDS: PIPERACILLIN SODIUM/TAZOBACTAM 3.375 GM in NORMAL SALINE 100 ML IV SCH ×3 (05:03→17:18)
[2018-06-14 05:56] LABS: ANION GAP 8 (5-19); BLOOD UREA NITROGEN 9 mg/dL (7-20); CALCIUM 7.8 mg/dL (8.4-10.2); CARBON DIOXIDE 23 mmol/L (22-30); CHLORIDE 114 mmol/L (98-107); GLUCOSE 85 mg/dL (75-110); SODIUM 145.3 mmol/L (137-145)
[2018-06-14 06:24] LABS: ABSOLUTE BASOPHILS # (AUTO) 0.1 10^3/uL (0.0-0.2); ABSOLUTE EOSINOPHILS # (AUTO) 0.1 10^3/uL (0.0-0.6); ABSOLUTE LYMPHOCYTES (AUTO) 1.3 10^3/uL (0.5-4.7); ABSOLUTE MONOCYTES (AUTO) 0.6 10^3/uL (0.1-1.4); ABSOLUTE NEUT (AUTO) 9.6 10^3/uL (1.7-8.2); BASOPHILS % (AUTO) 0.6 % (0-2); EOSINOPHILS % (AUTO) 0.7 % (0-6); HEMATOCRIT 28.9 % (36.0-47.0); MEAN CORPUSCULAR HEMOGLOBIN 30.5 pg (27.0-33.4); MEAN CORPUSCULAR HGB CONC 33.9 g/dL (32.0-36.0); MEAN CORPUSCULAR VOLUME 90 fl (80-97); MONOCYTES % (AUTO) 5.5 % (3-13); PLATELET COUNT 172 10^3/uL (150-450); RED BLOOD COUNT 3.22 10^6/uL (3.72-5.28); RED CELL DISTRIBUTION WIDTH 14.1 % (11.5-14.0); SEGMENTED NEUTROPHILS % (AUTO) 82.2 % (42-78); TOTAL CELLS COUNTED % (AUTO) 100 %; WHITE BLOOD COUNT 11.7 10^3/uL (4.0-10.5)
[2018-06-14 06:33] LABS: HEMOGLOBIN 9.8 g/dL (12.0-15.5)
[2018-06-14 07:28] LABS: POTASSIUM 3.1 mmol/L (3.6-5.0)
[2018-06-14] MEDS: APIXABAN 5 MG TABLET PO SCH ×2 (09:35→17:21)
[2018-06-14] MEDS: ASPIRIN 81 MG TABLET, CHEWABLE PO SCH (09:35)
--- NOTE | 2018-06-14 15:26 | PDOC PROGRESS REPORT ---
Subjective Progress Note for:: 06/14/18 Subjective:: Assume care. Patient was admitted for septic shock secondary to pyelonephritis. Patient currently comfortable in bed. Patient has been taken off the Levophed last night. Blood pressures have been stable. Patient does have dementia and will say yes to all questions asked. Granddaughter is at bedside and she does state the patient is much better looking today and is much more responsive and that she patient was able to recognize her. No recurrence of fever or chills. No vomiting. Reason For Visit: UTI SEPSIS Physical Exam Vital Signs: Temp Pulse Resp BP Pulse Ox 98.4 F 54 L 17 112/86 H 94 06/14/18 12:00 06/14/18 12:00 06/14/18 14:45 06/14/18 14:39 06/14/18 14:45 Intake & Output 06/13/18 06/14/18 06/15/18 06:59 06:59 06:59 Intake Total 182 497 Output Total 150 1620 380 Balance 32 -1123 -380 Weight 154 lb 5.177 oz 150 lb 12.739 oz General appearance: PRESENT: no acute distress, well-developed, well-nourished Head exam: PRESENT: atraumatic, normocephalic Eye exam: PRESENT: conjunctiva pink, EOMI, PERRLA. ABSENT: scleral icterus Ear exam: PRESENT: normal external ear exam Neck exam: ABSENT: carotid bruit, JVD, lymphadenopathy, thyromegaly Respiratory exam: PRESENT: clear to auscultation lisette. ABSENT: rales, rhonchi, wheezes Cardiovascular exam: PRESENT: RRR. ABSENT: diastolic murmur, rubs, systolic murmur GI/Abdominal exam: PRESENT: normal bowel sounds, soft. ABSENT: distended, guarding, mass, rebound, tenderness Neurological exam: PRESENT: alert, awake, CN II-XII grossly intact Results Laboratory Results: 06/14/18 05:30 06/14/18 05:30 06/14/18 06/14/18 05:30 05:30 WBC 11.7 H RBC 3.22 L Hgb 9.8 L D Hct 28.9 L MCV 90 MCH 30.5 MCHC 33.9 RDW 14.1 H Plt Count 172 Seg Neutrophils % 82.2 H Lymphocytes % 11.0 L Monocytes % 5.5 Eosinophils % 0.7 Basophils % 0.6 Absolute Neutrophils 9.6 H Absolute Lymphocytes 1.3 Absolute Monocytes 0.6 Absolute Eosinophils 0.1 Absolute Basophils 0.1 Sodium 145.3 H Potassium 3.1 L D Chloride 114 H Carbon Dioxide 23 Anion Gap 8 BUN 9 Creatinine 0.74 Est GFR ( Amer) > 60 Est GFR (Non-Af Amer) > 60 Glucose 85 Calcium 7.8 L 06/13/18 06/13/18 06/13/18 06:30 06:30 13:45 Creatine Kinase 51 94 CK-MB (CK-2) 0.45 Troponin I < 0.012 06/13/18 06/13/18 06/13/18 13:45 18:50 18:50 Creatine Kinase 94 CK-MB (CK-2) 0.74 0.84 Troponin I < 0.012 < 0.012 Impressions: Chest X-Ray 06/13/18 00:20 IMPRESSION: No acute disease. Head CT 06/13/18 00:20 IMPRESSION: No acute findings. Assessment & Plan - Diagnosis (1) Septic shock Is this a current diagnosis for this admission?: Yes Plan: Resolved. Septic shock secondary to acute pyelonephritis. Patient did present with fever, tachypnea and hypotension not responding to IV fluid resuscitation. Continue Zosyn until final cultures are resulted. Patient passed swallow eval. Will advance diet. Discontinue IV fluids. She will be downgraded from ICU. (2) Pulmonary embolism Is this a current diagnosis for this admission?: Yes Plan: Continue Eliquis for history of PE. (3) Hypertension Qualifiers: Hypertension type: essential hypertension Qualified Code(s): I10 - Essential (primary) hypertension Is this a current diagnosis for this admission?: Yes Plan: Hold home meds losartan and amlodipine due to recent septic shock. She has been taken off Levophed drip yesterday. Blood pressures are within normal limits. We will continue to monitor blood pressures. Continue holding losartan and amlodipine for today. (6) Hypokalemia Is this a current diagnosis for this admission?: Yes Plan: Replace with 60 meqs of oral potassium. - Time Time Spent with patient: 15-24 minutes
[2018-06-14] MEDS: POTASSIUM CHLORIDE 20 MEQ/50 ML RTU IV SCH ×3 (15:28→22:33)
[2018-06-14] MEDS: ATORVASTATIN CALCIUM 10 MG TABLET PO SCH (22:03)
[2018-06-14] MEDS ORDERED: POTASSI CL 20 MEQ/50 ML RIDER 20 MEQ/50 ML RTUPB IV ONE (22:14)
[2018-06-15] MEDS: PIPERACILLIN SODIUM/TAZOBACTAM 3.375 GM in NORMAL SALINE 100 ML IV SCH ×4 (05:29→12:27)
[2018-06-15 06:19] LABS: ABSOLUTE BASOPHILS # (AUTO) 0.1 10^3/uL (0.0-0.2); ABSOLUTE EOSINOPHILS # (AUTO) 0.3 10^3/uL (0.0-0.6); ABSOLUTE LYMPHOCYTES (AUTO) 1.2 10^3/uL (0.5-4.7); ABSOLUTE MONOCYTES (AUTO) 0.7 10^3/uL (0.1-1.4); ABSOLUTE NEUT (AUTO) 6.9 10^3/uL (1.7-8.2); BASOPHILS % (AUTO) 0.9 % (0-2); HEMATOCRIT 27.9 % (36.0-47.0); HEMOGLOBIN 9.4 g/dL (12.0-15.5); LYMPHOCYTES % (AUTO) 13.1 % (13-45); MEAN CORPUSCULAR HEMOGLOBIN 30.4 pg (27.0-33.4); MEAN CORPUSCULAR HGB CONC 33.8 g/dL (32.0-36.0); MEAN CORPUSCULAR VOLUME 90 fl (80-97); MONOCYTES % (AUTO) 7.6 % (3-13); PLATELET COUNT 182 10^3/uL (150-450); SEGMENTED NEUTROPHILS % (AUTO) 75.4 % (42-78); TOTAL CELLS COUNTED % (AUTO) 100 %; WHITE BLOOD COUNT 9.1 10^3/uL (4.0-10.5)
[2018-06-15 06:36] LABS: ANION GAP 5 (5-19); BLOOD UREA NITROGEN 7 mg/dL (7-20); CALCIUM 8.2 mg/dL (8.4-10.2); CARBON DIOXIDE 23 mmol/L (22-30); CHLORIDE 117 mmol/L (98-107); GLUCOSE 82 mg/dL (75-110); POTASSIUM 3.6 mmol/L (3.6-5.0); SODIUM 145.2 mmol/L (137-145)
[2018-06-15] MEDS: NORMAL SALINE 1000 ML 1,000 ML IV PRN (07:01)
[2018-06-15] MEDS: ASPIRIN 81 MG TABLET, CHEWABLE PO SCH (09:24)
[2018-06-15] MEDS: APIXABAN 5 MG TABLET PO SCH (09:24)
[2018-06-15] MEDS ORDERED: DOCUSATE SODIUM 100 MG CAPSULE PO PRN (10:29)
[2018-06-15 15:11] VITALS: BP 139/60
== END 2018-06-15 15:55 | disposition home health service (06) | DRG 871 ==
LOC: ER → EH 04:40 → ICU 05:58 → 3S 06-14 21:36
PROVIDERS: ADMIT Internal Medicine; ATTEND Internal Medicine
PROC: 06HM33Z Insertion of Infusion Device into Right Femoral Vein, Percutaneous Approach (ICD-10-PCS; principal; 2018-06-13)
DX: A41.9 Sepsis, unspecified organism (principal); R65.21 Severe sepsis with septic shock; N10 Acute pyelonephritis; E83.42 Hypomagnesemia; I10 Essential (primary) hypertension; E87.6 Hypokalemia; G30.9 Alzheimer's disease, unspecified; Z66 Do not resuscitate; K21.9 Gastro-esophageal reflux disease without esophagitis; F02.80 Dementia in other diseases classified elsewhere, unspecified severity, without behavioral disturbance, psychotic disturbance, mood disturbance, and anxiety; Z86.718 Personal history of other venous thrombosis and embolism; Z95.828 Presence of other vascular implants and grafts; Z91.040 Latex allergy status; Z83.3 Family history of diabetes mellitus; Z86.711 Personal history of pulmonary embolism; Z90.710 Acquired absence of both cervix and uterus; Z90.49 Acquired absence of other specified parts of digestive tract; Z79.01 Long term (current) use of anticoagulants
CPT/HCPCS: 36415; 51701; 70450; 71045; 80048; 80053; 81001; 82550; 82553; 82803; 83605; 83735; 84132; 84484; 85025; 85610; 87040; 87077; 87086; 87088; 87186; 93005; 93010; 96365; 96366; 96367; 96368; 99291; C1751; J0696; J1956; J2060; J2405; J2543; J3370; J3475; J3480; J3490; J7030; J7060

== ENCOUNTER 2018-06-16 08:31 | Emergency (ER) | payer MEDICARE ==
[2018-06-16] MEDS ORDERED: NORMAL SALINE 1000 ML 1,000 ML IV ONE (10:46)
--- NOTE | 2018-06-16 10:46 | ER Document Report ---
ED General - General Chief Complaint: Diarrhea Stated Complaint: FEVER, DIARRHEA Time Seen by Provider: 06/16/18 09:42 Notes: Patient is here to be evaluated for diarrhea. She was just in this hospital, admitted on Friday, and treated for sepsis, UTI, and shock. She was in the ICU with a femoral central line. She was discharged home yesterday. Family says that she began having diarrhea last night and 3 hours since then. She had some fever this morning, taken by family it was 101. Patient did not have any diarrhea when she entered the hospital. She had not been treated with any antibiotics prior to her admission to the hospital. Has not had any vomiting. Denies any abdominal pains. Has not had any blood in her stools. Last bowel movement was about 8:00 this morning. Patient has a history of pulmonary embolism and has a [place] filter and also is on Eliquis. Dementia. TRAVEL OUTSIDE OF THE [place] IN LAST 30 DAYS: No - Related Data Allergies/Adverse Reactions: latex Allergy (Verified 06/13/18 00:52) Past Medical History - Social History Smoking Status: Never Smoker Chew tobacco use (# tins/day): No Drug Abuse: None Family History: Reviewed & Not Pertinent, DM Patient has suicidal ideation: No Patient has homicidal ideation: No - Past Medical History Cardiac Medical History: Reports: Hx DVT - Currently on Eliquis, Hx Hypercholesterolemia, Hx Hypertension, Hx Pulmonary Embolism - off coumadin Denies: Hx Heart Attack, Hx Heart Murmur Pulmonary Medical History: Denies: Hx Asthma, Hx Tuberculosis GI Medical History: Reports: Hx Gastroesophageal Reflux Disease Musculoskeletal Medical History: Psychiatric Medical History: Reports: Hx Dementia, Hx Depression Past Surgical History: Reports: Hx Cholecystectomy, Hx Hysterectomy, Hx Vascular Surgery - IVC filter, Other - parathyroid resection. - Immunizations Hx Diphtheria, Pertussis, Tetanus Vaccination: Yes Hx Pneumococcal Vaccination: 10/27/07 Review of Systems - Review of Systems Notes: REVIEW OF SYSTEMS: CONSTITUTIONAL : Fever this morning. EENT: Denies eye, ear, nose or mouth or throat pain or other symptoms. CARDIOVASCULAR: Denies chest pain. RESPIRATORY: Denies cough, chest congestion, or shortness of breath. GASTROINTESTINAL: Denies abdominal pain or nausea, vomiting. See HPI. GENITOURINARY: Denies difficulty or painful urinating, urinary frequency, blood in urine. MUSCULOSKELETAL: Denies back or neck pain. Denies joint pain or swelling. SKIN: Denies rash or skin lesions. NEUROLOGICAL: Denies LOC or altered mental status. Mild dementia. Denies headache. Denies sensory loss or motor deficits. ALL OTHER SYSTEMS REVIEWED AND NEGATIVE. Physical Exam - Vital signs Vitals: Temp Pulse Resp BP Pulse Ox 98.5 F 56 L 16 148/61 H 93 06/16/18 08:38 06/16/18 08:38 06/16/18 08:38 06/16/18 08:38 06/16/18 08:38 Interpretation: Bradycardic - Heart rate 56. - Notes Notes: PHYSICAL EXAMINATION: GENERAL: Well-appearing, in no acute distress. Peaceful. Vital signs normal except for slightly low heart rate of 56. HEAD: Atraumatic, normocephalic. EYES: Pupils equal round and reactive to light, extraocular movements intact. ENT: oropharynx clear without exudates. Moist mucous membranes. NECK: Normal range of motion, supple. LUNGS: Breath sounds clear and equal bilaterally. HEART: Regular rate and rhythm without murmurs. ABDOMEN: Soft, nontender. No guarding or rebound. No masses. BACK: No tenderness throughout entire back. EXTREMITIES: Normal range of motion without pain. Trace edema bilaterally. No findings suggestive of DVT. NEUROLOGICAL: Consistent with mild dementia. Normal sensory, motor, and reflex exams. Awake, alert. PSYCH: Normal mood, normal affect. SKIN: Warm, dry, no rashes. Course - Re-evaluation Re-evalutation: 06/16/18 15:05 Patient has provided a couple of small loose stool specimens, but they have been mixed with urine and unsatisfactory. That is the only still she has had in the several hours that they have been here. Family also reports that of this patient is at home when he had diarrhea for the past couple of days and his doctors have started him on Flagyl. - Vital Signs Vital signs: Temp Pulse Resp BP Pulse Ox 98.6 F 56 L 21 H 164/71 H 96 06/16/18 15:36 06/16/18 08:38 06/16/18 15:20 06/16/18 15:20 06/16/18 15:20 - Laboratory Result Diagrams: 06/16/18 10:11 06/16/18 10:11 Laboratory results interpreted by me: 06/16/18 06/16/18 10:11 10:11 Hgb 11.4 L Hct 33.9 L RDW 14.2 H Chloride 111 H BUN 3 L Total Protein 6.0 L Albumin 3.0 L - EKG Interpretation by Me EKG shows normal: Sinus rhythm Rate: Bradycardia - At 54 Rhythm: NSR, APC's Discharge - Discharge Clinical Impression: Diarrhea Condition: Stable Disposition: HOME, SELF-CARE Additional Instructions: DIARRHEA, NON-SPECIFIC: Diarrhea means frequent, watery stools. There are many causes. Any problem that keeps the intestinal tract from absorbing water from the stool can lead to diarrhea. A sudden new diarrhea problem is usually caused by a virus, food sensitivity, toxic bacteria, or drugs. In this case, we expect the problem to go away soon. Testing is done only if you seem seriously ill from the diarrhea. If you have chronic diarrhea, or diarrhea that keeps coming back, we need to find out why. Chronic diarrhea can be due to inflammation of the bowels such as Crohn's disease or ulcerative colitis, food sensitivity such as intolerance to lactose or wheat protein, irritable bowel syndrome, and other problems. If your diarrhea is a significant problem but it's not clear why you have it, we' ll refer you to a specialist for further testing. During an episode of diarrhea, drink small amounts (two to six ounces) of clear liquids (soft drinks, sport drinks, herb teas, broth, etc). Take fluids frequently to prevent dehydration. It's usually not a problem to take mild anti- diarrhea medication such as Kaopectate or Pepto-Bismol. As the diarrhea eases, advance to small amounts of bland food (mashed potato, toast) for 24 hours. Call the physician if blood appears in your vomit or stool, if vomiting lasts longer than 24 hours, if the abdominal pain worsens or becomes localized to one area, if you develop high fever, or if you become lightheaded and weak. INTRAVENOUS (I V) FLUIDS: As part of your care today, you received intravenous (IV) fluids. IV fluids are administered to patients who are dehydrated or to those who have certain chemical (electrolyte) abnormalities that need correcting. At this time, it does not appear that you need to have antibiotics for the diarrhea. It may be lessening on its own already. If you have worsening of your symptoms and if you develop such side effects as fever, etc., return for us to reevaluate your condition. I am providing you with order slips for you to get a stool test for infection. You can bring a specimen in with these orders to [facility] or you can bring it to the lab here in the hospital. If you get these tests done, you can call me to check on the results. FOLLOW-UP CARE: If you have been referred to a physician for follow-up care, call the physician s office for an appointment as you were instructed or within the next two days. If you experience worsening or a significant change in your symptoms, notify the physician immediately or return to the Emergency Department at any time for re-evaluation. Forms: Follow-Up Laboratory Testing Referrals: BRITTANI BAPTISTE, [Primary Care Provider] - Follow up as needed
[2018-06-16 11:13] LABS: ABSOLUTE BASOPHILS # (AUTO) 0.1 10^3/uL (0.0-0.2); ABSOLUTE EOSINOPHILS # (AUTO) 0.2 10^3/uL (0.0-0.6); ABSOLUTE MONOCYTES (AUTO) 0.6 10^3/uL (0.1-1.4); ABSOLUTE NEUT (AUTO) 4.2 10^3/uL (1.7-8.2); BASOPHILS % (AUTO) 1.4 % (0-2); EOSINOPHILS % (AUTO) 3.9 % (0-6); HEMATOCRIT 33.9 % (36.0-47.0); HEMOGLOBIN 11.4 g/dL (12.0-15.5); LYMPHOCYTES % (AUTO) 16.8 % (13-45); MEAN CORPUSCULAR HEMOGLOBIN 30.1 pg (27.0-33.4); MEAN CORPUSCULAR HGB CONC 33.7 g/dL (32.0-36.0); MEAN CORPUSCULAR VOLUME 89 fl (80-97); MONOCYTES % (AUTO) 9.1 % (3-13); PLATELET COUNT 228 10^3/uL (150-450); RED CELL DISTRIBUTION WIDTH 14.2 % (11.5-14.0); SEGMENTED NEUTROPHILS % (AUTO) 68.8 % (42-78); TOTAL CELLS COUNTED % (AUTO) 100 %
[2018-06-16 11:18] LABS: INTERNATIONAL RATION (INR) 1.04; PROTHROMBIN TIME 14.1 SEC (11.4-15.4)
[2018-06-16 11:23] LABS: APPEARANCE,URINE CLEAR; BILIRUBIN,URINE NEGATIVE (NEGATIVE); COLOR,URINE STRAW; GLUCOSE, URINE NEGATIVE (NEGATIVE); KETONES,URINE NEGATIVE (NEGATIVE); LEUKOCYTE ESTERASE,URINE NEGATIVE (NEGATIVE); NITRITE,URINE NEGATIVE (NEGATIVE); PROTEIN,URINE NEGATIVE (NEGATIVE); URINE SPECIFIC GRAVITY 1.008; UROBILINOGEN,URINE NEGATIVE mg/dL (<2.0)
[2018-06-16 11:31] LABS: ALANINE AMINOTRANSFERASE 22 U/L (9-52); ALKALINE PHOSPHATASE 101 U/L (38-126); ANION GAP 11 (5-19); ASPARTATE AMINO TRANSFERASE 20 U/L (14-36); BILIRUBIN,DIRECT 0.3 mg/dL (0.0-0.4); BILIRUBIN,TOTAL 0.9 mg/dL (0.2-1.3); BLOOD UREA NITROGEN 3 mg/dL (7-20); CARBON DIOXIDE 23 mmol/L (22-30); CHLORIDE 111 mmol/L (98-107); GLUCOSE 86 mg/dL (75-110); POTASSIUM 3.6 mmol/L (3.6-5.0)
[2018-06-16 15:36] VITALS: BP 164/71
--- NOTE | 2018-06-16 22:27 | EKG REPORT ---
SEVERITY:- ABNORMAL ECG - SINUS RHYTHM NONSPECIFIC T ABNORMALITIES, ANT-LAT LEADS : Confirmed by: Stephanie Rock 16-Jun-2018 22:26:41
== END 2018-06-16 15:37 | disposition home or self-care (01) ==
LOC: ER 08:31
DX: R19.7 Diarrhea, unspecified (principal); R50.9 Fever, unspecified; Z86.718 Personal history of other venous thrombosis and embolism; Z79.01 Long term (current) use of anticoagulants; I10 Essential (primary) hypertension
CPT/HCPCS: 93005; 99284; 96360; 96361; 51702; 36415; 87040; 87086; 82962; 85025; 85610; 80053; 81001; 83605; 93010; J7030

== ENCOUNTER → 2018-10-06 | Outpatient (CLI) | payer MEDICARE ==
--- NOTE | 2018-10-06 14:56 | RADIOLOGY REPORT (SQ) ---
EXAM DESCRIPTION: CT HEAD WITHOUT COMPLETED DATE/TIME: 10/06/2018 2:03 pm REASON FOR STUDY: R55 SYNCOPE AND COLLAPSE R55 SYNCOPE AND COLLAPSE S09.8XXA OTHER SPECIFIED INJUR IES OF HEAD, INITIAL ENCOUNTER W19.XXXA UNSPECIFIED FALL, INITIAL ENCOUNTER COMPARISON: 06/13/2018 TECHNIQUE: Axial images acquired through the brain without intravenous contrast. Images reviewed wi th bone, brain and subdural windows. Additional sagittal coronal reconstructions regenerative Images stored on PACS. All CT scanners at this facility use dose modulation, iterative reconstruction, and/or weight based d osing when appropriate to reduce radiation dose to as low as reasonably achievable (ALARA). [facility]: Dose Right [facility]: CareDose [facility]: Dose Right [facility]: Teradose 4D [facility]: [place] RADIATION DOSE: CT Rad equipment meets quality standard of care and radiation dose reduction techniq ues were employed. CTDIvol: 48.6 - 48.6 mGy. DLP: 1808 mGy-cm.mGy. LIMITATIONS: Patient motion. FINDINGS: VENTRICLES: Prominent and stable compatible parenchymal volume loss. CEREBRUM: No masses. No hemorrhage. No midline shift. Stable scattered areas of low density in the white matter most likely due to chronic micro-vascular ischemic change. No evidence for acute infar ction. CEREBELLUM: No masses. No hemorrhage. No alteration of density. No evidence for acute infarction. EXTRAAXIAL SPACES: Age-related involutional change. No fluid collections. No masses. ORBITS AND GLOBE: No intra- or extraconal masses. Normal contour of globe without masses. CALVARIUM: No fracture. PARANASAL SINUSES: No fluid or mucosal thickening. SOFT TISSUES: No mass or hematoma. OTHER: No other significant finding. IMPRESSION: Stable chronic white matter changes and parenchymal atrophy without evidence of acute in tracranial process. EVIDENCE OF ACUTE STROKE: NO. TECHNICAL DOCUMENTATION: JOB ID: [id number] Quality ID # [id number]: Final reports with documentation of one or more dose reduction techniques (e.g., Au tomated exposure control, adjustment of the mA and/or kV according to patient size, use of iterative reconstruction technique) 2010 [employer]- All Rights Reserved Reading location - IP/workstation name: [email or web address]
--- NOTE | 2018-10-06 15:05 | RADIOLOGY REPORT (SQ) ---
EXAM DESCRIPTION: CTA CHEST COMPLETED DATE/TIME: 10/06/2018 2:04 pm REASON FOR STUDY: I26.09 OTHER PULMONARY EMBOLISM WITH ACUTE COR PULMONALE R55 SYNCOPE AND COLLAPSE S09.8XXA OTHER SPECIFIED INJURIES OF HEAD, INITIAL ENCOUNTER W19.XXXA UNSPECIFIED FALL, INITIAL EN COUNTER COMPARISON: 01/09/2018 TECHNIQUE: CT scan of the chest performed using helical scanning technique with dynamic intravenous contrast injection. Images reviewed with lung, soft tissue and bone windows. Reconstructed coronal and sagittal MPR images reviewed. Additional 3 dimensional post-processing performed to develop Maximal Intensity Projection images ([place] P). All images stored on PACS. All CT scanners at this facility use dose modulation, iterative reconstruction, and/or weight based d osing when appropriate to reduce radiation dose to as low as reasonably achievable (ALARA). [facility]: Dose Right [facility]: CareDose [facility]: Dose Right [facility]: Teradose 4D [facility]: [email or web address] CONTRAST TYPE AND DOSE: contrast/concentration: Isovue 350.00 mg/ml; Total Contrast Delivered: 77.0 ml; Total Saline Delivered: 105.0 ml 62 cc Omnipaque 350- low osmolar. RENAL FUNCTION: Creatinine 1.7 RADIATION DOSE: CT Rad equipment meets quality standard of care and radiation dose reduction techniq ues were employed. CTDIvol: 9.0 - 13.2 mGy. DLP: 308 mGy-cm. . LIMITATIONS: None. FINDINGS: LUNGS AND PLEURA: Grossly stable areas of nodular consolidation within the peripheral righ t upper lobe, largest consolidated nodule measures 7.4 mm (series 4, image 20). No new airspace dise ase. No significant pleural effusion. No pneumothorax. AORTA AND GREAT VESSELS: No aneurysm. Contrast bolus not optimized for the aorta. HEART: Scattered coronary atherosclerosis. Enlarged heart. Small pericardial effusion. No significa nt coronary artery calcifications. PULMONARY ARTERIES: Unchanged cord-like filling defect within the segmental right lower lobe pulmonar y arteries, likely chronic nonocclusive clot. No evidence of new clot burden. Right to left ventric ular ratio is normal. HILAR AND MEDIASTINAL STRUCTURES: No discrete hilar mass or adenopathy. HARDWARE: None in the chest. UPPER ABDOMEN: No significant findings. Limited exam. THYROID AND OTHER SOFT TISSUES: No masses. No adenopathy. BONES: No acute or significant finding. 3D MIPS: Confirm above findings. OTHER: No other significant finding. IMPRESSION: 1. Grossly stable nonocclusive filling defect within the segmental right lower lobe pul monary arteries most compatible with chronic pulmonary embolus. No evidence of new clot burden. 2. Stable nodular consolidation within the right upper lobe, possibly scarring. Consider 6 to 12 mo nth follow-up to ensure stability/resolution. COMMENT: Quality ID # 436: Final reports with documentation of one or more dose reduction techniques (e.g., Automated exposure control, adjustment of the mA and/or kV according to patient size, use of iterative reconstruction technique) TECHNICAL DOCUMENTATION: JOB ID: [id number] [employer]- All Rights Reserved Reading location - IP/workstation name: [email or web address]
== END ==
LOC: RAD 13:33
PROVIDERS: ATTEND Physician Assistant Medical
DX: S09.8XXA Other specified injuries of head, initial encounter (principal); I26.99 Other pulmonary embolism without acute cor pulmonale; R55 Syncope and collapse; R41.82 Altered mental status, unspecified; R06.00 Dyspnea, unspecified; W19.XXXA Unspecified fall, initial encounter
CPT/HCPCS: 70450; 71275; 82565

== ENCOUNTER → 2019-01-06 | Outpatient (CLI) | payer MEDICARE ==
--- NOTE | 2019-01-06 11:05 | RADIOLOGY REPORT (SQ) ---
EXAM DESCRIPTION: MRI HEAD WITHOUT COMPLETED DATE/TIME: 01/06/2019 10:46 am REASON FOR STUDY: UNSPEC DEMENTIA W/O BEHAVIORAL DISTURBANCES F03.90 UNSPECIFIED DEMENTIA WITHOUT B EHAVIORAL DISTURBANCE COMPARISON: None. TECHNIQUE: Multiplanar imaging includes noncontrasted T1, T2, FLAIR, diffusion with ADC map and post gadolinium contrast T1 sequences. Images stored on PACS. CONTRAST TYPE AND DOSE: None. Contrast was not given because patient was having a difficult time co operating with the exam RENAL FUNCTION: Not applicable. LIMITATIONS: None. FINDINGS: ANATOMY: No anomalies. Normal vascular flow voids. Pituitary fossa normal. CSF SPACES: Ventricles are prominent secondary to cortical atrophy. CEREBRUM: Sulci and gyri normal in size and contour. Few scattered areas of increased white matter s ignal on FLAIR imaging. No evidence of hemorrhage, mass, or extraaxial fluid collection. No abnormal enhancement post contrast. POSTERIOR FOSSA: No signal alteration. No hemorrhage. No edema, masses, or mass effect. Internal jael tory canals, cerebellopontine angles, mastoids normal. No enhancing lesions. No abnormal enhancement post contrast. DIFFUSION IMAGING: Negative for acute or subacute infarction. ORBITS: No masses. Globes normal. PARANASAL SINUSES: No fluid levels. Mucosa normal. OTHER: No other significant finding. IMPRESSION: Mild involutional changes of aging and mild chronic microvascular ischemia. No acute in tracranial imaging findings. Study is slightly limited by patient's inability to completely cooperat e. EVIDENCE OF ACUTE STROKE: NO. TECHNICAL DOCUMENTATION: JOB ID: [id number] [employer]- All Rights Reserved Reading location - IP/workstation name: [email or web address]
== END ==
LOC: RAD 09:47
PROVIDERS: ATTEND Student in an Organized Health Care Education/Training Program
DX: F03.90 Unspecified dementia, unspecified severity, without behavioral disturbance, psychotic disturbance, mood disturbance, and anxiety (principal)
CPT/HCPCS: 70553; 82565

== ENCOUNTER → 2019-03-11 | Outpatient (CLI) | payer MEDICARE ==
--- NOTE | 2019-03-11 11:51 | XCELERA REPORT ---
[address] [address] Tel: [phone] Fax: [phone] Lower Extremity Arterial Evaluation Name: PENNY COELHO Age: 83 yrs Gender: Female : 1935 Patient Status: Outpatient Patient Location: [facility] Study Date: 03/11/2019 10:51 AM Procedure: Ankle brachial indicies performed. Reason For Study: PAIN Ordering Physician: BRITTANI BAPTISTE Performed By: Anjali Chan Right Side Arterial Evaluation RADHA in Posterior Tibial:1.06. Multiphasic waveform. Left Side Arterial Evaluation RADHA in Posterior Tibial:1.11. Multiphasic waveform. Interpretation Summary Normal RADHA. Suggesting normal arterial system, within the limitations of this technique. : BRITTANI BAPTISTE > Eb Queen
--- NOTE | 2019-03-11 13:47 | RADIOLOGY REPORT (SQ) ---
EXAM DESCRIPTION: ANKLE RIGHT COMPLETE COMPLETED DATE/TIME: 03/11/2019 11:38 am REASON FOR STUDY: RIGHT LEG PAIN (M79.604) M79.604 PAIN IN RIGHT LEG M79.605 PAIN IN LEFT LEG R60. 9 EDEMA, UNSPECIFIED COMPARISON: None. NUMBER OF VIEWS: Three views. TECHNIQUE: AP, lateral, and oblique radiographic images acquired of the right ankle. LIMITATIONS: None. FINDINGS: MINERALIZATION: Normal. BONES: No acute fracture or dislocation. No worrisome bone lesions. JOINTS: No effusions. SOFT TISSUES: No soft tissue swelling. No foreign body. OTHER: No other significant finding. IMPRESSION: NEGATIVE STUDY OF THE RIGHT ANKLE. NO RADIOGRAPHIC EVIDENCE OF ACUTE INJURY. TECHNICAL DOCUMENTATION: JOB ID: [id number] [employer]- All Rights Reserved Reading location - IP/workstation name: [email or web address]
--- NOTE | 2019-03-11 21:37 | XCELERA REPORT ---
[address] [address] Lower Extremity Venous Evaluation Procedure: A bilateral duplex scan of the lower extremity veins was performed. The evaluation included responses to compression and other maneuvers with patient in the supine and standing positions to assess venous insufficiency. Right Sided Venous Evaluation Deep venous system evaluation shows patent veins with significant reflux identified. 4. second reflux in the Popliteal, 2.5 seconds reflux in the Femoral vein. Saphena Femoral junction:no reflux. Greater Saphenous vein, Proximal thigh: reflux: 2.5 seconds, 3.5 mm diameter. Greater Saphenous vein, mid thigh: reflux: 3seconds, 2.5 mm diameter. Greater Saphenous vein, Distal thigh: reflux: 4 seconds.2.9 mm. Greater Saphenous vein, Proximal below knee: reflux: 2 second reflux. 2.7 mm diameter. Greater Saphenous vein, Mid below knee: reflux: 1.8 second. 3.1 mm diameter. Greater Saphenous vein, Distal below knee: reflux: none. Left Sided Venous Evaluation Deep venous system evaluation shows patent veins with significant reflux identified. 1.6 second in the Femoral vein, 4 seconds in the Popliteal. Saphena Femoral junction: no reflux. Femoral vein reflux: no reflux. Greater Saphenous vein, Proximal thigh: reflux: no reflux. Greater Saphenous vein, Distal thigh: reflux: no reflux. Greater Saphenous vein, Proximal below knee: reflux: no reflux. No significant Perforators identified. Interpretation Summary No duplex evidence of DVT or obstruction in the bilateral lower extremities. Significant deep and superficial reflux on the right side, Deep reflux only noted on the left. Name: PENNY COELHO Age: 83 yrs Gender: Female : 1935 Patient Status: Outpatient Patient Location: Study Date: 03/11/2019 10:21 AM Reason For Study: EDEMA Ordering Physician: EMILE^BRITTANI^KEE Performed By: Audie Carpio : EMILE^BRITTANI^KEE > Eb Queen
== END ==
LOC: SP 09:39
PROVIDERS: ATTEND Student in an Organized Health Care Education/Training Program
DX: M79.604 Pain in right leg (principal); M79.605 Pain in left leg; R60.9 Edema, unspecified
CPT/HCPCS: 93922; 93970